=== PATIENT | male | born 1995 | race Caucasian/White ===

== ENCOUNTER 2018-07-21 16:14 | Inpatient (IN) | payer OTHER ==
[~2018-07-21] VITALS: Ht 180.3 cm; Wt 97.2 kg
[~2018-07-21 16:14] MED LIST: ACET1TAB40 PO; AMOX500C2 PO; IBUP-1542 PO
[2018-07-21] MEDS ORDERED: MULT-345 PO (20:08)
[2018-07-21] MEDS ORDERED: ELVI1TAB3 PO (20:08)
[2018-07-21] MEDS ORDERED: DIVA125T PO (20:18)
[2018-07-21] MEDS ORDERED: QUET100T PO (20:19)
[2018-07-21] MEDS ORDERED: ESCI10TA PO (20:20)
[2018-07-21] MEDS ORDERED: NAPR-688 PO (20:24)
[2018-07-21 20:39] VITALS: BP 111/59; PULSE 96; RESP 18
[2018-07-21] MEDS ORDERED: ACETAMINOPHEN 325 MG TAB PO PRN (21:30)
[2018-07-21] MEDS ORDERED: ONDANSETRON 4 MG INJ IV PRN (21:30)
[2018-07-21] MEDS ORDERED: NACL 0.9% 3 ML SYG IV SCH (21:30)
[2018-07-21] MEDS ORDERED: ALBUTEROL/IPRATROPIUM (NEB) 3 ML AMP HHN PRN (21:30)
[2018-07-21] MEDS: HYDROCODONE/APAP (5/325) TAB PO PRN (22:03)
[2018-07-21] MEDS: TRIMETHOPRIM/SULFAMETHOX (DS) TAB PO SCH (22:03)
[2018-07-21] MEDS ORDERED: QUETIAPINE 100 MG TAB PO SCH (22:30)
[2018-07-21] MEDS: DIVALPROEX (EC) 250 MG TAB PO SCH (23:07)
[2018-07-21] MEDS: QUETIAPINE 100 MG TAB PO SCH (23:08)
[2018-07-21] MEDS ORDERED: DIVALPROEX (EC) 250 MG TAB PO SCH (23:30)
[2018-07-22 00:12] VITALS: Ht 180.3 cm; Wt 97.2 kg
[2018-07-22 02:00] VITALS: BP 98/58; PULSE 75; RESP 18
--- NOTE | 2018-07-22 02:51 | HP ---
Date/Time of Note Date/Time of Note DATE: 07/22/18 TIME: 02:46 Assessment/Plan VTE Prophylaxis Pharmacological prophylaxis: heparin Assessment/Plan Assessment/Plan 1. Right knee and lower leg cellulitis, with abscess formation -IV antibiotic -ID consult 2. HIV -Check CD4 count and viral load -Continue home med 3. Psychiatric disorder: History of suicide attempt by jumping off a bridge in 2013. Currently no suicidal ideation. -Continue home med Result Diagram: 07/22/18 0042 07/22/18 0042 Results 24hrs Laboratory Tests Test 07/22/18 00:42 White Blood Count 8.8 Red Blood Count 4.20 L Hemoglobin 12.2 L Hematocrit 36.3 L Mean Corpuscular Volume 86.4 Mean Corpuscular Hemoglobin 29.0 Mean Corpuscular Hemoglobin Concent 33.6 Red Cell Distribution Width 12.2 Platelet Count 241 Mean Platelet Volume 8.5 Immature Granulocytes % 0.500 H Neutrophils % 75.8 Lymphocytes % 13.0 L Monocytes % 8.9 Eosinophils % 1.6 Basophils % 0.2 Nucleated Red Blood Cells % 0.0 Immature Granulocytes # 0.040 H Neutrophils # 6.7 Lymphocytes # 1.2 Monocytes # 0.8 Eosinophils # 0.1 Basophils # 0.0 Nucleated Red Blood Cells # 0.0 Sodium Level 139 Potassium Level 3.7 Chloride Level 102 Carbon Dioxide Level 27 Anion Gap 10 Blood Urea Nitrogen 13 Creatinine 0.80 Est Glomerular Filtrat Rate mL/min > 60 Glucose Level 105 Calcium Level 8.6 Total Bilirubin 0.6 Direct Bilirubin 0.00 Indirect Bilirubin 0.6 Aspartate Amino Transf (AST/SGOT) 17 Alanine Aminotransferase (ALT/SGPT) 18 Alkaline Phosphatase 77 Total Protein 7.0 Albumin 3.5 Globulin 3.50 H Albumin/Globulin Ratio 1.00 HPI/ROS Admit Date/Time Admit Date/Time Jul 21, 2018 at 19:50 Hx of Present Illness This is a 22-year-old male with a history of HIV, schizophrenia, bipolar disorder who initially presented on outside hospital complaining of right knee/knee swelling, tenderness and infection. Symptoms been going on for about a week. He thinks he was bitten by spider. Patient was transferred to [facility] for insurance reasons. PMH/Family/Social Past Medical History Medications Current Medications IV Flush (NS 3 ml) 3 ml PER PROTOCOL IV ; Start 07/21/18 at 21:30 Ondansetron HCl (Zofran Inj) 4 mg Q6H PRN IV NAUSEA AND/OR VOMITING; Start 07/21/18 at 21:30 Acetaminophen (Tylenol Tab) 650 mg Q6H PRN PO PAIN LEVEL 1-3 OR FEVER; Start 07/21/18 at 21:30 Acetaminophen/ Hydrocodone Bitart ([place] (5/325)) 1 tab Q6H PRN PO MODERATE PAIN LEVEL 4-6; Start 07/21/18 at 21:30 Acetaminophen/ Hydrocodone Bitart ([place] (5/325)) 2 tab Q6H PRN PO SEVERE PAIN LEVEL 7-10 Last administered on 07/21/18at 22:03; Admin Dose 2 TAB; Start 07/21/18 at 21:30 Heparin Sodium (Porcine) (Heparin (5000 Units/1ml)) 5,000 unit Q12 SC ; Start 07/22/18 at 09:00 Albuterol/ Ipratropium (Duoneb) 3 ml Q2H RESP THERAPY PRN HHN SHORTNESS OF BREATH; Start 07/21/18 at 21:30 Trimethoprim/ Sulfamethoxazole (Bactrim (Ds)) 1 tab BID PO Last administered on 07/21/18at 22:03; Admin Dose 1 TAB; Start 07/21/18 at 21:30 Elvitegravir/ Cobicis/Emtricit/ Tenof (Genvoya Tablet) 1 each DAILY PO ; Start 07/22/18 at 09:00 Escitalopram Oxalate (Lexapro) 10 mg DAILY PO ; Start 07/22/18 at 09:00 Multivitamins/ Minerals (Theragran-M) 1 tab DAILY PO ; Start 07/22/18 at 09:00 Quetiapine Fumarate (Seroquel) 300 mg HS PO Last administered on 07/21/18at 23:08; Admin Dose 300 MG; Start 07/21/18 at 22:58 Divalproex Sodium (Depakote) 750 mg QHS PO Last administered on 07/21/18at 23:07; Admin Dose 750 MG; Start 07/21/18 at 22:58 Miscellaneous Information Patients own medicat... BID@10,16 XX ; Start 07/22/18 at 10:00 Coded Allergies: No Known Allergy (Unverified , 10/30/15) Social History Smoking Status: Current every day smoker Exam/Review of Systems Vital Signs Vitals Vital Signs Date Temp Pulse Resp B/P (MAP) Pulse Ox O2 O2 Flow FiO2 Time Delivery Rate 07/22/18 98.5 75 18 98/58 (71) Room Air 02:00 Exam Exam Constitutional: other (no acute distress) Head: normocephalic Respiratory: other (slight decreased at bases) Cardiovascular: regular rate and rhythm Gastrointestinal: soft Extremities: normal pulses PMH/Family/Social Past Medical History Medical History: other (see hpi) Coded Allergies: No Known Drug Allergy (Verified Allergy, Unknown, 03/06/16) Past Surgical History Past Surgical Hx: other (see hpi) Family History Significant Family History: no pertinent family hx Social History Alcohol Use: other Smoking Status: Unknown if ever smoked Drug Use: other ROSE REBOLLEDO MD Jul 22, 2018 02:51
[2018-07-22 08:30] VITALS: BP 112/68; PULSE 91; RESP 18
[2018-07-22] MEDS: HYDROCODONE/APAP (5/325) TAB PO PRN ×5 (08:47→22:18)
[2018-07-22] MEDS: ESCITALOPRAM 10 MG TAB PO SCH (08:47)
[2018-07-22] MEDS: TRIMETHOPRIM/SULFAMETHOX (DS) TAB PO SCH ×2 (08:48→20:40)
[2018-07-22] MEDS: HEPARIN 5,000 UNIT/1 ML VIAL SC SCH ×2 (08:49→20:43)
[2018-07-22] MEDS: MULTIVITAMINS/MINERALS TAB PO SCH (08:49)
[2018-07-22] MEDS ORDERED: ELVITEG/COBI/EMTRIC/TENOFO ALA 1 EACH TABLET PO SCH (09:00)
[2018-07-22] MEDS: ELVITEG/COBI/EMTRIC/TENOFO ALA 1 EACH TABLET PO SCH (09:42)
--- NOTE | 2018-07-22 11:50 | PN ---
Date/Time of Note Date/Time of Note DATE: 07/22/18 TIME: 11:47 Assessment/Plan VTE Prophylaxis Risk score (from Ns)>0 risk: 1 [place] [facility] [place] SCD contraindicated: low risk/ambulating Pharmacological prophylaxis: NA/contraindicated Pharm contraindication: low risk/ambulating Lines/Catheters [facility] Saline Lock Urinary Cath still in place: No Assessment/Plan Hospital Course Assessment and plan 1. Right lower extremity cellulitis robin and knee. Probable strep, stable consulted ID. Antibiotics and if fails may need I&D 2. Bug/spider bite? Tetanus shot soon 3. Chronic HIV status unknown 4. Chronic major depression history of 5. Bipolar versus schizophrenia 6. Failure to thrive homeless. May need placement. Apparently wants some crutches or a walker 7. Tobacco abuse status post counseling offered patch Subjective States he woke up at his family's house with 2 areas of injury on his right leg. Thinks he had a spider bite. He has seen spiders in his uncle's closet. Denies any injury against a bed frame etc. No known h/o ivda. No fevers chills Reiger nausea vomiting hematuria. Reactive: Vital signs stable Physical exam No pallor icterus adenopathy Regular no murmur gallop Clear Benign No edema. Right robin and right knee area have some edema mild erythema and probable abscess. Result Diagram: 07/22/182 07/22/18 0042 Results 24hrs Laboratory Tests Test 07/22/18 00:42 White Blood Count 8.8 Red Blood Count 4.20 L Hemoglobin 12.2 L Hematocrit 36.3 L Mean Corpuscular Volume 86.4 Mean Corpuscular Hemoglobin 29.0 Mean Corpuscular Hemoglobin Concent 33.6 Red Cell Distribution Width 12.2 Platelet Count 241 Mean Platelet Volume 8.5 Immature Granulocytes % 0.500 H Neutrophils % 75.8 Lymphocytes % 13.0 L Monocytes % 8.9 Eosinophils % 1.6 Basophils % 0.2 Nucleated Red Blood Cells % 0.0 Immature Granulocytes # 0.040 H Neutrophils # 6.7 Lymphocytes # 1.2 Monocytes # 0.8 Eosinophils # 0.1 Basophils # 0.0 Nucleated Red Blood Cells # 0.0 Sodium Level 139 Potassium Level 3.7 Chloride Level 102 Carbon Dioxide Level 27 Anion Gap 10 Blood Urea Nitrogen 13 Creatinine 0.80 Est Glomerular Filtrat Rate mL/min > 60 Glucose Level 105 Calcium Level 8.6 Total Bilirubin 0.6 Direct Bilirubin 0.00 Indirect Bilirubin 0.6 Aspartate Amino Transf (AST/SGOT) 17 Alanine Aminotransferase (ALT/SGPT) 18 Alkaline Phosphatase 77 Total Protein 7.0 Albumin 3.5 Globulin 3.50 H Albumin/Globulin Ratio 1.00 Exam/Review of Systems Vital Signs Vitals Vital Signs Date Temp Pulse Resp B/P (MAP) Pulse Ox O2 O2 Flow FiO2 Time Delivery Rate 07/22/18 98.1 91 18 112/68 100 Room Air 08:30 (83) Medications Medications Current Medications IV Flush (NS 3 ml) 3 ml PER PROTOCOL IV ; Start 07/21/18 at 21:30 Ondansetron HCl (Zofran Inj) 4 mg Q6H PRN IV NAUSEA AND/OR VOMITING; Start 07/21/18 at 21:30 Acetaminophen (Tylenol Tab) 650 mg Q6H PRN PO PAIN LEVEL 1-3 OR FEVER Last administered on 07/22/18at 11:12; Admin Dose 650 MG; Start 07/21/18 at 21:30 Acetaminophen/ Hydrocodone Bitart ([place] (5/325)) 1 tab Q6H PRN PO MODERATE PAIN LEVEL 4-6 Last administered on 07/22/18 09:47; Admin Dose 1 TAB; Start 07/21/18 at 21:30 Acetaminophen/ Hydrocodone Bitart ([place] (5/325)) 2 tab Q6H PRN PO SEVERE PAIN LEVEL 7-10 Last administered on 07/22/18 08:47; Admin Dose 2 TAB; Start 07/21/18 at 21:30 Heparin Sodium (Porcine) (Heparin (5000 Units/1ml)) 5,000 unit Q12 SC Last administered on 07/22/18 08:49; Admin Dose 5,000 UNIT; Start 07/22/18 at 09:00 Albuterol/ Ipratropium (Duoneb) 3 ml Q2H RESP THERAPY PRN HHN SHORTNESS OF BREATH; Start 07/21/18 at 21:30 Trimethoprim/ Sulfamethoxazole (Bactrim (Ds)) 1 tab BID PO Last administered on 07/22/18 08:48; Admin Dose 1 TAB; Start 07/21/18 at 21:30 Escitalopram Oxalate (Lexapro) 10 mg DAILY PO Last administered on 07/22/18at 08:47; Admin Dose 10 MG; Start 07/22/18 at 09:00 Multivitamins/ Minerals (Theragran-M) 1 tab DAILY PO Last administered on 07/22/18at 08:49; Admin Dose 1 TAB; Start 07/22/18 at 09:00 Quetiapine Fumarate (Seroquel) 300 mg HS PO Last administered on 07/21/18at 23:08; Admin Dose 300 MG; Start 07/21/18 at 22:58 Divalproex Sodium (Depakote) 750 mg QHS PO Last administered on 07/21/18at 23:07; Admin Dose 750 MG; Start 07/21/18 at 22:58 Miscellaneous Information Patients own medicat... BID@10,16 XX ; Start 07/22/18 at 10:00 Elvitegravir/ Cobicis/Emtricit/ Tenof (Genvoya Tablet) 1 each DAILY PO Last administered on 07/22/18at 09:42; Admin Dose 1 EACH; Start 07/22/18 at 09:00 JEWELL VALENZUELA MD Jul 22, 2018 11:50
[2018-07-22] MEDS ORDERED: TETANUS IMMUNE GLOB 250 UNIT SYG IM ONE (12:00)
[2018-07-22 14:45] VITALS: BP 110/70; PULSE 89; RESP 18
[2018-07-22] MEDS: NICOTINE (14 MG/24 HR) PATCH TRANSDERM SCH (15:52)
[2018-07-22] MEDS ORDERED: VANCOMYCIN IV PER PHARMACY XX SCH (16:00)
[2018-07-22] MEDS ORDERED: VANCOMYCIN 2 GM in SOD CHLORIDE 0.9% 500 ML IVPB SCH (18:00)
[2018-07-22 19:32] VITALS: BP 109/64; PULSE 91; RESP 18
[2018-07-22] MEDS: QUETIAPINE 100 MG TAB PO SCH (20:40)
[2018-07-22] MEDS: DIVALPROEX (EC) 250 MG TAB PO SCH (20:40)
--- NOTE | 2018-07-22 21:24 | CONS ---
DATE OF ADMISSION: 07/21/2018 DATE OF CONSULTATION: 07/22/2018 TYPE OF CONSULTATION: Infectious Disease. REASON FOR CONSULTATION: Antibiotic management. HISTORY OF PRESENT ILLNESS: Mathieu Silveira is a 22-year-old male with a number of problems who comes in now with right lower extremity cellulitis. The patient has a history of: 1. Bipolar versus schizophrenia. 2. Failure to thrive. He is homeless and may need placement. 3. He uses tobacco. 4. Right lower extremity cellulitis involving the robin and the knee, possibly Strep, possibly Staph. PAST MEDICAL HISTORY: As outlined. FAMILY HISTORY: Noncontributory. SOCIAL HISTORY: He does smoke on a regular basis. He also may chew tobacco. He does not drink or a buse drugs. ALLERGIES: NONE TO PENICILLIN, SULFA, OR FOODS. MEDICATIONS: Per chart. REVIEW OF SYSTEMS: Noncontributory. PHYSICAL EXAMINATION: GENERAL: The patient is a well-developed, well-nourished male, somewhat disheveled, awake and orient ed, in no acute distress. VITAL SIGNS: Stable. He is afebrile. SKIN: Without generalized rash. HEENT: Within normal limits. NECK: Supple. LYMPH NODES: None palpable. CHEST: Decreased breath sounds in the bases. HEART: Without murmur or gallop. ABDOMEN: Soft, nontender, without organosplenomegaly, masses. EXTREMITIES: Right anterior tibial area and right knee has edema and mild erythema, possible abscess . ANCILLARY LABORATORY DATA: White count of 8.8, H and H of 12.2 and 36.3, and platelet count 241,000. BUN and creatinine 13/0.8. Random glucose 105. IMPRESSION AND PLAN: Patient should be started on vancomycin and maybe Levaquin. He also has HIV. He is on anti-HIV medication. He is also on Bactrim. We have to find out what exactly his CD4 count is. The patient is on Genvoya which consists of elvitegravir, cobicistat, and Truvada. As I said, we need the CD4 count. We also need to put him on vancomycin and oral Levaquin. I will dictate my f indings to the hospitalist. Dictated By: MELISSA ORTIZ MD, JD/ALEXEY Conf#: [id number] DID#: [id number] CC: ERASMO LUCIO MD;*EndCC*
[2018-07-23 02:00] VITALS: BP 132/63; PULSE 95; RESP 18
[2018-07-23] MEDS: VANCOMYCIN 1.5 GM in SOD CHLORIDE 0.9% 250 ML IVPB SCH ×3 (03:29→20:22)
[2018-07-23] MEDS: HYDROCODONE/APAP (5/325) TAB PO PRN ×2 (03:35→09:38)
[2018-07-23] MEDS: LEVOFLOXACIN 500 MG TAB PO SCH (06:04)
[2018-07-23 08:00] VITALS: BP 102/53; PULSE 96; RESP 19
[2018-07-23] MEDS: MULTIVITAMINS/MINERALS TAB PO SCH (09:40)
[2018-07-23] MEDS: ELVITEG/COBI/EMTRIC/TENOFO ALA 1 EACH TABLET PO SCH (09:40)
[2018-07-23] MEDS: NICOTINE (14 MG/24 HR) PATCH TRANSDERM SCH (09:41)
[2018-07-23] MEDS: TRIMETHOPRIM/SULFAMETHOX (DS) TAB PO SCH (09:41)
[2018-07-23] MEDS: ESCITALOPRAM 10 MG TAB PO SCH (09:43)
[2018-07-23] MEDS: HEPARIN 5,000 UNIT/1 ML VIAL SC SCH ×2 (09:43→20:26)
--- NOTE | 2018-07-23 12:57 | PN ---
Date/Time of Note Date/Time of Note DATE: 07/23/18 TIME: 12:57 Assessment/Plan VTE Prophylaxis Risk score (from Ns)>0 risk: 2 SCD applied (from Ns): Yes SCD contraindicated: low risk/ambulating Pharmacological prophylaxis: LMWH Lines/Catheters IV Catheter Type (from Nrs): Saline Lock Urinary Cath still in place: No Assessment/Plan Hospital Course Assessment and plan 1. Right lower extremity cellulitis robin and knee. Probable strep, stable cont Antibiotics and if fails may need I&D 2. Bug/spider bite? Tetanus shot soon 3. Chronic HIV status unknown 4. Chronic major depression history of 5. Bipolar versus schizophrenia 6. Failure to thrive homeless. May need placement. Apparently wants some crutches or a walker 7. Tobacco abuse status post counseling offered patch Subjective 07/22 states he woke up at his family's house with 2 areas of injury on his right leg. Thinks he had a spider bite. He has seen spiders in his uncle's closet. Denies any injury against a bed frame etc. No known h/o ivda. No fevers chills Reiger nausea vomiting hematuria. \/4 moderate pain O: Vital signs stable Physical exam No pallor Regular no murmur gallop Clear Benign No edema. Right robin and right knee area have some edema mild erythema and prob able abscess. Result Diagram: 07/23/18 0533 07/23/18 0533 Results 24hrs Laboratory Tests Test 07/23/18 05:33 07/23/18 07:17 White Blood Count 8.7 Red Blood Count 4.17 L Hemoglobin 12.2 L Hematocrit 37.3 L Mean Corpuscular Volume 89.4 Mean Corpuscular Hemoglobin 29.3 Mean Corpuscular Hemoglobin Concent 32.7 Red Cell Distribution Width 12.2 Platelet Count 301 # Mean Platelet Volume 8.6 Immature Granulocytes % 0.500 H Neutrophils % 76.0 Lymphocytes % 11.4 L Monocytes % 10.0 Eosinophils % 1.8 Basophils % 0.3 Nucleated Red Blood Cells % 0.0 Immature Granulocytes # 0.040 H Neutrophils # 6.6 Lymphocytes # 1.0 Monocytes # 0.9 Eosinophils # 0.2 Basophils # 0.0 Nucleated Red Blood Cells # 0.0 Prothrombin Time 15.2 H Prothrombin Time Ratio 1.2 INR International Normalized Ratio 1.19 Sodium Level 140 Potassium Level 4.1 Chloride Level 100 Carbon Dioxide Level 31 Anion Gap 9 Blood Urea Nitrogen 8 Creatinine 0.73 Est Glomerular Filtrat Rate mL/min > 60 Glucose Level 85 Hemoglobin A1c 4.8 Calcium Level 8.7 Thyroid Stimulating Hormone (TSH) 1.100 Lab Scanned Report REFERENCE LAB Exam/Review of Systems Vital Signs Vitals Vital Signs Date Temp Pulse Resp B/P (MAP) Pulse Ox O2 O2 Flow FiO2 Time Delivery Rate 07/23/18 99.0 96 19 102/53 95 Room Air 08:00 (69) Intake and Output 07/22/18 07/22/18 07/23/18 1414:59 22:59 06:59 IntakeIntake Total 920 ml 460 ml 750 ml OutputOutput Total 300 ml BalanceBalance 620 ml 460 ml 750 ml Medications Medications Current Medications IV Flush (NS 3 ml) 3 ml PER PROTOCOL IV ; Start 07/21/18 at 21:30 Ondansetron HCl (Zofran Inj) 4 mg Q6H PRN IV NAUSEA AND/OR VOMITING; Start 07/21/18 at 21:30 Acetaminophen (Tylenol Tab) 650 mg Q6H PRN PO PAIN LEVEL 1-3 OR FEVER Last administered on 07/22/18 11:12; Admin Dose 650 MG; Start 07/21/18 at 21:30 Heparin Sodium (Porcine) (Heparin (5000 Units/1ml)) 5,000 unit Q12 SC Last administered on 07/23/18 09:43; Admin Dose 5,000 UNIT; Start 07/22/18 at 09:00 Albuterol/ Ipratropium (Duoneb) 3 ml Q2H RESP THERAPY PRN HHN SHORTNESS OF BREATH; Start 07/21/18 at 21:30 Trimethoprim/ Sulfamethoxazole (Bactrim (Ds)) 1 tab BID PO Last administered on 07/23/18 09:41; Admin Dose 1 TAB; Start 07/21/18 at 21:30 Escitalopram Oxalate (Lexapro) 10 mg DAILY PO Last administered on 07/23/18 09:43; Admin Dose 10 MG; Start 07/22/18 at 09:00 Multivitamins/ Minerals (Theragran-M) 1 tab DAILY PO Last administered on 07/23/18 09:40; Admin Dose 1 TAB; Start 07/22/18 at 09:00 Quetiapine Fumarate (Seroquel) 300 mg HS PO Last administered on 07/22/18at 20:40; Admin Dose 300 MG; Start 07/21/18 at 22:58 Divalproex Sodium (Depakote) 750 mg QHS PO Last administered on 07/22/18at 20:40; Admin Dose 750 MG; Start 07/21/18 at 22:58 Miscellaneous Information Patients own medicat... BID@10,16 XX ; Start 07/22/18 at 10:00 Elvitegravir/ Cobicis/Emtricit/ Tenof (Genvoya Tablet) 1 each DAILY PO Last administered on 07/23/18 09:40; Admin Dose 1 EACH; Start 07/22/18 at 09:00 Nicotine (Nicoderm 14 Mg/ 24hr) 1 patch DAILY TRANSDERM Last administered on 07/23/18at 09:41; Admin Dose 1 PATCH; Start 07/22/18 at 13:00 Vancomycin HCl (Vanco Iv Per Pharmacy) VANCOMYCIN PER PHARMACY PER PROTOCOL XX ; Start 07/22/18 at 16:00 Levofloxacin (Levaquin) 500 mg DAILY@06 PO Last administered on 07/23/18at 06:04; Admin Dose 500 MG; Start 07/23/18 at 06:00 Vancomycin HCl 1.5 gm/Sodium Chloride 250 ml @ 83.333 mls/ hr Q8H IVPB Last administered on 07/23/18at 10:29; Admin Dose 83.333 MLS/HR; Start 07/23/18 at 02:00 Acetaminophen/ Hydrocodone Bitart ([place] (10/325)) 1 tab Q4H PRN PO MODERATE PAIN LEVEL 4-6; Start 07/23/18 at 11:00 Morphine Sulfate (morphine) 10 mg Q3H PRN PO SEVERE PAIN LEVEL 7-10; Start 07/23/18 at 11:00 JEWELL VALENZUELA MD Jul 23, 2018 12:57
[2018-07-23 14:00] VITALS: BP 105/67; PULSE 92; RESP 18
[2018-07-23] MEDS: morphine LIQ (10 MG/5 ML) CUP PO PRN ×2 (14:41→18:56)
--- NOTE | 2018-07-23 14:51 | CONS ---
Date/Time of Note Date/Time of Note DATE: 07/23/18 TIME: 14:51 Assessment/Plan Assessment/Plan Hospital Course Patient is alert looks comfortable denies pain at the moment no fevers overnight. WBC 8.7 platelets 301 neutrophils 76 BUN 8 creatinine 0.73 Antimicrobials: Vancomycin, Levaquin, Bactrim Physical examination: Well-nourished well-developed young man who is alert in no distress. Head atraumatic normocephalic neck is supple chest rise symmetrical breath sounds diminished bases heart S1-S2 abdomen soft bowel sounds present extremities with right knee swelling erythema and area of fluctuance. Bilateral lower extremities with multiple scabs below knees from scratching Assessment: 1. Right knee cellulitis, possibly developing abscess, likely secondary to spider bite 2. HIV disease with undetectable viral load per report, patient is on Genvoya 3. Bipolar versus schizophrenia Plan: Patient remained stable, we will discontinue Bactrim, continue vancomycin and Levaquin, send serology for CD4 count, keep right lower extremity elevated, consider evaluation by Ortho surgery Result Diagram: 07/23/18 0533 07/23/18 0533 Results 24hrs Laboratory Tests Test 07/23/18 05:33 07/23/18 07:17 White Blood Count 8.7 Red Blood Count 4.17 L Hemoglobin 12.2 L Hematocrit 37.3 L Mean Corpuscular Volume 89.4 Mean Corpuscular Hemoglobin 29.3 Mean Corpuscular Hemoglobin Concent 32.7 Red Cell Distribution Width 12.2 Platelet Count 301 # Mean Platelet Volume 8.6 Immature Granulocytes % 0.500 H Neutrophils % 76.0 Lymphocytes % 11.4 L Monocytes % 10.0 Eosinophils % 1.8 Basophils % 0.3 Nucleated Red Blood Cells % 0.0 Immature Granulocytes # 0.040 H Neutrophils # 6.6 Lymphocytes # 1.0 Monocytes # 0.9 Eosinophils # 0.2 Basophils # 0.0 Nucleated Red Blood Cells # 0.0 Prothrombin Time 15.2 H Prothrombin Time Ratio 1.2 INR International Normalized Ratio 1.19 Sodium Level 140 Potassium Level 4.1 Chloride Level 100 Carbon Dioxide Level 31 Anion Gap 9 Blood Urea Nitrogen 8 Creatinine 0.73 Est Glomerular Filtrat Rate mL/min > 60 Glucose Level 85 Hemoglobin A1c 4.8 Calcium Level 8.7 Thyroid Stimulating Hormone (TSH) 1.100 Lab Scanned Report REFERENCE LAB Consultation Date/Type/Reason Admit Date/Time Jul 21, 2018 at 19:50 Initial Consult Date Type of Consult ID Exam/Review of Systems Vital Signs Vitals Vital Signs Date Temp Pulse Resp B/P (MAP) Pulse Ox O2 O2 Flow FiO2 Time Delivery Rate 07/23/18 99.0 96 19 102/53 95 Room Air 08:00 (69) Intake and Output 07/22/18 07/22/18 07/23/18 1414:59 22:59 06:59 IntakeIntake Total 920 ml 460 ml 750 ml OutputOutput Total 300 ml BalanceBalance 620 ml 460 ml 750 ml Medications Medications Current Medications IV Flush (NS 3 ml) 3 ml PER PROTOCOL IV ; Start 07/21/18 at 21:30 Ondansetron HCl (Zofran Inj) 4 mg Q6H PRN IV NAUSEA AND/OR VOMITING; Start 07/21/18 at 21:30 Acetaminophen (Tylenol Tab) 650 mg Q6H PRN PO PAIN LEVEL 1-3 OR FEVER Last administered on 07/22/18at 11:12; Admin Dose 650 MG; Start 07/21/18 at 21:30 Heparin Sodium (Porcine) (Heparin (5000 Units/1ml)) 5,000 unit Q12 SC Last administered on 07/23/18 09:43; Admin Dose 5,000 UNIT; Start 07/22/18 at 09:00 Albuterol/ Ipratropium (Duoneb) 3 ml Q2H RESP THERAPY PRN HHN SHORTNESS OF BREATH; Start 07/21/18 at 21:30 Trimethoprim/ Sulfamethoxazole (Bactrim (Ds)) 1 tab BID PO Last administered on 07/23/18 09:41; Admin Dose 1 TAB; Start 07/21/18 at 21:30 Escitalopram Oxalate (Lexapro) 10 mg DAILY PO Last administered on 07/23/18 09:43; Admin Dose 10 MG; Start 07/22/18 at 09:00 Multivitamins/ Minerals (Theragran-M) 1 tab DAILY PO Last administered on 07/23/18 09:40; Admin Dose 1 TAB; Start 07/22/18 at 09:00 Quetiapine Fumarate (Seroquel) 300 mg HS PO Last administered on 07/22/18at 20:40; Admin Dose 300 MG; Start 07/21/18 at 22:58 Divalproex Sodium (Depakote) 750 mg QHS PO Last administered on 07/22/18at 20:40; Admin Dose 750 MG; Start 07/21/18 at 22:58 Miscellaneous Information Patients own medicat... BID@10,16 XX ; Start 07/22/18 at 10:00 Elvitegravir/ Cobicis/Emtricit/ Tenof (Genvoya Tablet) 1 each DAILY PO Last administered on 07/23/18at 09:40; Admin Dose 1 EACH; Start 07/22/18 at 09:00 Nicotine (Nicoderm 14 Mg/ 24hr) 1 patch DAILY TRANSDERM Last administered on 07/23/18at 09:41; Admin Dose 1 PATCH; Start 07/22/18 at 13:00 Vancomycin HCl (Vanco Iv Per Pharmacy) VANCOMYCIN PER PHARMACY PER PROTOCOL XX ; Start 07/22/18 at 16:00 Levofloxacin (Levaquin) 500 mg DAILY@06 PO Last administered on 07/23/18at 06:04; Admin Dose 500 MG; Start 07/23/18 at 06:00 Vancomycin HCl 1.5 gm/Sodium Chloride 250 ml @ 83.333 mls/ hr Q8H IVPB Last administered on 07/23/18at 10:29; Admin Dose 83.333 MLS/HR; Start 07/23/18 at 02:00 Acetaminophen/ Hydrocodone Bitart ([place] (10/325)) 1 tab Q4H PRN PO MODERATE PAIN LEVEL 4-6; Start 07/23/18 at 11:00 Morphine Sulfate (morphine) 10 mg Q3H PRN PO SEVERE PAIN LEVEL 7-10 Last administered on 07/23/18at 14:41; Admin Dose 10 MG; Start 07/23/18 at 11:00 Miscellaneous Information (*Rx Drug Level Order Reminder*) VANCO TROUGH 07/23 @ 1,700 ONCE ONCE XX ; Start 07/23/18 at 17:00; Stop 07/23/18 at 17:01 STEPHEN GRANT NP Jul 23, 2018 14:51
[2018-07-23] MEDS: SILVER SULFADIAZINE 1% 25 GM CR TOP SCH (17:30)
[2018-07-23 19:47] VITALS: BP 117/61; PULSE 104; RESP 20
[2018-07-23] MEDS: DIVALPROEX (EC) 250 MG TAB PO SCH (20:22)
[2018-07-23] MEDS: QUETIAPINE 100 MG TAB PO SCH (20:22)
[2018-07-24] MEDS: morphine LIQ (10 MG/5 ML) CUP PO PRN ×5 (02:00→21:29)
[2018-07-24 02:02] VITALS: BP 90/50; PULSE 91; RESP 20
[2018-07-24] MEDS: VANCOMYCIN 1.5 GM in SOD CHLORIDE 0.9% 250 ML IVPB SCH ×3 (04:39→20:04)
[2018-07-24] MEDS: LEVOFLOXACIN 500 MG TAB PO SCH (05:52)
[2018-07-24 08:07] VITALS: BP 100/53; PULSE 79; RESP 16
[2018-07-24] MEDS: ESCITALOPRAM 10 MG TAB PO SCH (08:26)
[2018-07-24] MEDS: MULTIVITAMINS/MINERALS TAB PO SCH (08:26)
[2018-07-24] MEDS: HEPARIN 5,000 UNIT/1 ML VIAL SC SCH ×2 (08:27→20:32)
[2018-07-24] MEDS: NICOTINE (14 MG/24 HR) PATCH TRANSDERM SCH (08:28)
[2018-07-24] MEDS: ELVITEG/COBI/EMTRIC/TENOFO ALA 1 EACH TABLET PO SCH (10:25)
[2018-07-24] MEDS: SILVER SULFADIAZINE 1% 25 GM CR TOP SCH (11:20)
[2018-07-24] MEDS: HYDROCODONE/APAP (10/325) TAB PO PRN ×3 (12:27→20:53)
[2018-07-24 13:27] VITALS: BP 110/57; PULSE 97; RESP 16
--- NOTE | 2018-07-24 18:37 | PN ---
Date/Time of Note Date/Time of Note DATE: 07/24/18 TIME: 18:36 Assessment/Plan VTE Prophylaxis Risk score (from Nsg)>0 risk: 2 SCD applied (from Nsg): Yes SCD contraindicated: low risk/ambulating Pharmacological prophylaxis: LMWH Lines/Catheters IV Catheter Type (from Nrsg): Peripheral IV Urinary Cath still in place: No Assessment/Plan Hospital Course Assessment and plan 1. Right lower extremity cellulitis robin and knee. Probable strep, stable cont Antibiotics, may need I&D. Will consult Ortho 2. Bug/spider bite? Tetanus shot soon 3. Chronic HIV status unknown 4. Chronic major depression history of 5. Bipolar versus schizophrenia 6. Failure to thrive homeless. May need placement. Apparently wants some crutches or a walker 7. Tobacco abuse status post counseling offered patch Subjective 07/22 states he woke up at his family's house with 2 areas of injury on his right leg. Thinks he had a spider bite. He has seen spiders in his uncle's closet. Denies any injury against a bed frame etc. No known h/o ivda. No fevers chills Reiger nausea vomiting hematuria. \/4 moderate pain 07/24: No events O: Vital signs stable Physical exam No pallor Regular no m/r/g Clear Benign No edema. Rt robin and rt knee area have some edema mild erythema and probable abscess. Result Diagram: 07/23/18 0533 07/23/1833 Results 24hrs Laboratory Tests Test 07/23/18 19:10 Vancomycin Level Trough 14.5 Exam/Review of Systems Vital Signs Vitals Vital Signs Date Temp Pulse Resp B/P (MAP) Pulse Ox O2 O2 Flow FiO2 Time Delivery Rate 07/24/18 97.4 97 16 110/57 94 Room Air 13:27 (74) Intake and Output 07/23/18 07/23/18 07/24/18 1515:00 23:00 07:00 IntakeIntake Total 680 ml 680 ml 250 ml OutputOutput Total 350 ml 500 ml 1200 ml BalanceBalance 330 ml 180 ml -950 ml Medications Medications Current Medications IV Flush (NS 3 ml) 3 ml PER PROTOCOL IV ; Start 07/21/18 at 21:30 Ondansetron HCl (Zofran Inj) 4 mg Q6H PRN IV NAUSEA AND/OR VOMITING; Start 07/21/18 at 21:30 Acetaminophen (Tylenol Tab) 650 mg Q6H PRN PO PAIN LEVEL 1-3 OR FEVER Last administered on 07/22/18 11:12; Admin Dose 650 MG; Start 07/21/18 at 21:30 Heparin Sodium (Porcine) (Heparin (5000 Units/1ml)) 5,000 unit Q12 SC Last administered on 07/24/18 08:27; Admin Dose 5,000 UNIT; Start 07/22/18 at 09:00 Albuterol/ Ipratropium (Duoneb) 3 ml Q2H RESP THERAPY PRN HHN SHORTNESS OF BREATH; Start 07/21/18 at 21:30 Escitalopram Oxalate (Lexapro) 10 mg DAILY PO Last administered on 07/24/18 08:26; Admin Dose 10 MG; Start 07/22/18 at 09:00 Multivitamins/ Minerals (Theragran-M) 1 tab DAILY PO Last administered on 07/24/18 08:26; Admin Dose 1 TAB; Start 07/22/18 at 09:00 Quetiapine Fumarate (Seroquel) 300 mg HS PO Last administered on 07/23/18 20:22; Admin Dose 300 MG; Start 07/21/18 at 22:58 Divalproex Sodium (Depakote) 750 mg QHS PO Last administered on 07/23/18 20:22; Admin Dose 750 MG; Start 07/21/18 at 22:58 Miscellaneous Information Patients own medicat... BID@ XX ; Start 07/22/18 at 10:00 Elvitegravir/ Cobicis/Emtricit/ Tenof (Genvoya Tablet) 1 each DAILY PO Last administered on 07/24/18 10:25; Admin Dose 1 EACH; Start 07/22/18 at 09:00 Nicotine (Nicoderm 14 Mg/ 24hr) 1 patch DAILY TRANSDERM Last administered on 07/23/18 09:41; Admin Dose 1 PATCH; Start 07/22/18 at 13:00 Vancomycin HCl (Vanco Iv Per Pharmacy) VANCOMYCIN PER PHARMACY PER PROTOCOL XX ; Start 07/22/18 at 16:00 Levofloxacin (Levaquin) 500 mg DAILY@06 PO Last administered on 07/24/18 05:52; Admin Dose 500 MG; Start 07/23/18 at 06:00 Acetaminophen/ Hydrocodone Bitart ([place] (10)) 1 tab Q4H PRN PO MODERATE PAIN LEVEL 4-6 Last administered on 07/24/18 16:53; Admin Dose 1 TAB; Start 07/23/18 at 11:00 Morphine Sulfate (morphine) 10 mg Q3H PRN PO SEVERE PAIN LEVEL 7-10 Last administered on 07/24/18 18:12; Admin Dose 10 MG; Start 07/23/18 at 11:00 Silver Sulfadiazine (Thermazene 1% 25 Gm) 1 applic DAILY TOP Last administered on 07/24/18 11:20; Admin Dose 1 APPLIC; Start 07/23/18 at 17:30 Vancomycin HCl 1.5 gm/Sodium Chloride 250 ml @ 83.333 mls/ hr Q8H IVPB Last administered on 07/24/18 12:18; Admin Dose 83.333 MLS/HR; Start 07/24/18 at 12:00 JEWELL VALENZUELA MD Jul 24, 2018 18:37
--- NOTE | 2018-07-24 19:14 | CONS ---
Date/Time of Note Date/Time of Note DATE: 07/24/18 TIME: 19:11 Assessment/Plan Assessment/Plan Hospital Course 1345 Patient is alert looks comfortable, + drainage form R knee Antimicrobials: Vancomycin, Levaquin Physical examination: Well-nourished well-developed young man who is alert in no distress. Head atraumatic normocephalic neck is supple chest rise symmetrical breath sounds diminished bases heart S1-S2 abdomen soft bowel sounds present extremities with right knee swelling erythema and area of fluctuance. Bilateral lower extremities with multiple scabs below knees from scratching Assessment: 1. Right knee cellulitis, possibly developing abscess, likely secondary to spider bite 2. AIDS===> CD4 177, patient is on Genvoya 3. Bipolar versus schizophrenia Plan: Patient remained stable, will restart Bactrim for PCP prophylaxis, continue vancomycin and Levaquin, send drainage for cx, order R knee MRI Result Diagram: 07/23/18 0533 07/23/18 0533 Consultation Date/Type/Reason Admit Date/Time Jul 21, 2018 at 19:50 Initial Consult Date Type of Consult ID Exam/Review of Systems Vital Signs Vitals Vital Signs Date Temp Pulse Resp B/P (MAP) Pulse Ox O2 O2 Flow FiO2 Time Delivery Rate 07/24/18 97.4 97 16 110/57 94 Room Air 13:27 (74) Intake and Output 07/23/18 07/23/18 07/24/18 1515:00 23:00 07:00 IntakeIntake Total 680 ml 680 ml 250 ml OutputOutput Total 350 ml 500 ml 1200 ml BalanceBalance 330 ml 180 ml -950 ml Medications Medications Current Medications IV Flush (NS 3 ml) 3 ml PER PROTOCOL IV ; Start 07/21/18 at 21:30 Ondansetron HCl (Zofran Inj) 4 mg Q6H PRN IV NAUSEA AND/OR VOMITING; Start 07/21/18 at 21:30 Acetaminophen (Tylenol Tab) 650 mg Q6H PRN PO PAIN LEVEL 1-3 OR FEVER Last administered on 07/22/18at 11:12; Admin Dose 650 MG; Start 07/21/18 at 21:30 Heparin Sodium (Porcine) (Heparin (5000 Units/1ml)) 5,000 unit Q12 SC Last administered on 07/24/18at 08:27; Admin Dose 5,000 UNIT; Start 07/22/18 at 09:00 Albuterol/ Ipratropium (Duoneb) 3 ml Q2H RESP THERAPY PRN HHN SHORTNESS OF BREATH; Start 07/21/18 at 21:30 Escitalopram Oxalate (Lexapro) 10 mg DAILY PO Last administered on 07/24/18 08:26; Admin Dose 10 MG; Start 07/22/18 at 09:00 Multivitamins/ Minerals (Theragran-M) 1 tab DAILY PO Last administered on 07/24/18 08:26; Admin Dose 1 TAB; Start 07/22/18 at 09:00 Quetiapine Fumarate (Seroquel) 300 mg HS PO Last administered on 07/23/18 20:22; Admin Dose 300 MG; Start 07/21/18 at 22:58 Divalproex Sodium (Depakote) 750 mg QHS PO Last administered on 07/23/18 20:22; Admin Dose 750 MG; Start 07/21/18 at 22:58 Miscellaneous Information Patients own medicat... BID@ XX ; Start 07/22/18 at 10:00 Elvitegravir/ Cobicis/Emtricit/ Tenof (Genvoya Tablet) 1 each DAILY PO Last administered on 07/24/18 10:25; Admin Dose 1 EACH; Start 07/22/18 at 09:00 Nicotine (Nicoderm 14 Mg/ 24hr) 1 patch DAILY TRANSDERM Last administered on 07/23/18 09:41; Admin Dose 1 PATCH; Start 07/22/18 at 13:00 Vancomycin HCl (Vanco Iv Per Pharmacy) VANCOMYCIN PER PHARMACY PER PROTOCOL XX ; Start 07/22/18 at 16:00 Levofloxacin (Levaquin) 500 mg DAILY@06 PO Last administered on 07/24/18 05:52; Admin Dose 500 MG; Start 07/23/18 at 06:00 Acetaminophen/ Hydrocodone Bitart ([place] (10325)) 1 tab Q4H PRN PO MODERATE PAIN LEVEL 4-6 Last administered on 07/24/18 16:53; Admin Dose 1 TAB; Start 07/23/18 at 11:00 Morphine Sulfate (morphine) 10 mg Q3H PRN PO SEVERE PAIN LEVEL 7-10 Last administered on 07/24/18 18:12; Admin Dose 10 MG; Start 07/23/18 at 11:00 Silver Sulfadiazine (Thermazene 1% 25 Gm) 1 applic DAILY TOP Last administered on 07/24/18at 11:20; Admin Dose 1 APPLIC; Start 07/23/18 at 17:30 Vancomycin HCl 1.5 gm/Sodium Chloride 250 ml @ 83.333 mls/ hr Q8H IVPB Last administered on 07/24/18at 12:18; Admin Dose 83.333 MLS/HR; Start 07/24/18 at 12:00 STEPHEN GRANT NP Jul 24, 2018 19:14
[2018-07-24 20:00] VITALS: BP 90/64; PULSE 78; RESP 17
[2018-07-24] MEDS: QUETIAPINE 100 MG TAB PO SCH (20:17)
[2018-07-24] MEDS: DIVALPROEX (EC) 250 MG TAB PO SCH (20:17)
[2018-07-25 01:46] VITALS: BP 92/56; PULSE 76; RESP 18
[2018-07-25] MEDS: VANCOMYCIN 1.5 GM in SOD CHLORIDE 0.9% 250 ML IVPB SCH ×3 (04:26→19:40)
[2018-07-25] MEDS: LEVOFLOXACIN 500 MG TAB PO SCH (06:37)
[2018-07-25 07:25] VITALS: BP 89/49; PULSE 66; RESP 16
[2018-07-25] MEDS: morphine LIQ (10 MG/5 ML) CUP PO PRN ×5 (07:40→23:35)
[2018-07-25] MEDS: ELVITEG/COBI/EMTRIC/TENOFO ALA 1 EACH TABLET PO SCH (09:00)
[2018-07-25] MEDS: SILVER SULFADIAZINE 1% 25 GM CR TOP SCH (09:00)
[2018-07-25] MEDS: HEPARIN 5,000 UNIT/1 ML VIAL SC SCH (09:11)
[2018-07-25] MEDS: MULTIVITAMINS/MINERALS TAB PO SCH (09:16)
[2018-07-25] MEDS: TRIMETHOPRIM/SULFAMETHOX (DS) TAB PO SCH (09:16)
[2018-07-25] MEDS: NICOTINE (14 MG/24 HR) PATCH TRANSDERM SCH (09:16)
[2018-07-25] MEDS: HYDROCODONE/APAP (10/325) TAB PO PRN ×3 (09:16→21:12)
[2018-07-25] MEDS: ESCITALOPRAM 10 MG TAB PO SCH (09:16)
--- NOTE | 2018-07-25 12:07 | PN ---
Date/Time of Note Date/Time of Note DATE: 07/25/18 TIME: 12:03 Assessment/Plan VTE Prophylaxis Risk score (from Ns)>0 risk: 2 SCD applied (from Ns): Yes SCD contraindicated: low risk/ambulating Pharmacological prophylaxis: NA/contraindicated Pharm contraindication: low risk/ambulating Lines/Catheters [facility] [place] Urinary Cath still in place: No Assessment/Plan Hospital Course Assessment and plan 1. Rt lwr ext cellulitis robin and knee. Probable strep, stable cont Antibiotics, I&D prn. Will consult Ortho 2. Bug/spider bite? sp Tetanus shot 3. Chr HIV status, cd4 4. Chr major depression history of 5. Bipolar vs schizophrenia 6. Failure to thrive; homeless. May need placement. going to live with his uncle? Apparently wants some crutches or a walker 7. Tobacco abuse status post counseling offered patch Subjective 07/22: states he woke up at his family's house with 2 areas of injury on his right leg. Thinks he had a spider bite. He has seen spiders in his uncle's closet. Denies any injury against a bed frame etc. No known h/o ivda. No fevers chills Reiger nausea vomiting hematuria. 07/23: mod pain 07/24: No events 07/25: Moderate pain. No fever chills toxicity. Rt knee cellulitis/ abscess has burst feels better. O: Vital signs stable Physical exam No pallor Regular no m/r/g Clear Benign No edema. Rt robin and rt knee area have some edema mild erythema and probable abscess. Result Diagram: 07/23/18 0533 07/25/18 0557 Results 24hrs Laboratory Tests Test 07/25/18 05:57 Blood Urea Nitrogen 9 Creatinine 0.64 Exam/Review of Systems Vital Signs Vitals Vital Signs Date Temp Pulse Resp B/P (MAP) Pulse Ox O2 O2 Flow FiO2 Time Delivery Rate 07/25/18 97.7 66 16 89/49 (62) 96 Room Air 07:25 Intake and Output 07/24/18 07/24/18 07/25/18 1515:00 23:00 07:00 IntakeIntake Total 250 ml 1290 ml 250 ml OutputOutput Total 600 ml 400 ml BalanceBalance 250 ml 690 ml -150 ml Medications Medications Current Medications IV Flush (NS 3 ml) 3 ml PER PROTOCOL IV ; Start 07/21/18 at 21:30 Ondansetron HCl (Zofran Inj) 4 mg Q6H PRN IV NAUSEA AND/OR VOMITING; Start 07/21/18 at 21:30 Acetaminophen (Tylenol Tab) 650 mg Q6H PRN PO PAIN LEVEL 1-3 OR FEVER Last administered on 07/22/18 11:12; Admin Dose 650 MG; Start 07/21/18 at 21:30 Heparin Sodium (Porcine) (Heparin (5000 Units/1ml)) 5,000 unit Q12 SC Last administered on 07/25/18 09:11; Admin Dose 5,000 UNIT; Start 07/22/18 at 09:00 Albuterol/ Ipratropium (Duoneb) 3 ml Q2H RESP THERAPY PRN HHN SHORTNESS OF BREATH; Start 07/21/18 at 21:30 Escitalopram Oxalate (Lexapro) 10 mg DAILY PO Last administered on 07/25/18 09:16; Admin Dose 10 MG; Start 07/22/18 at 09:00 Multivitamins/ Minerals (Theragran-M) 1 tab DAILY PO Last administered on 09:16; Admin Dose 1 TAB; Start 07/22/18 at 09:00 Quetiapine Fumarate (Seroquel) 300 mg HS PO Last administered on 07/24/18 20:17; Admin Dose 300 MG; Start 07/21/18 at 22:58 Divalproex Sodium (Depakote) 750 mg QHS PO Last administered on 07/24/18 20:17; Admin Dose 750 MG; Start 07/21/18 at 22:58 Miscellaneous Information Patients own medicat... BID@ XX ; Start 07/22/18 at 10:00 Elvitegravir/ Cobicis/Emtricit/ Tenof (Genvoya Tablet) 1 each DAILY PO Last administered on 07/25/18 09:00; Admin Dose 1 EACH; Start 07/22/18 at 09:00 Nicotine (Nicoderm 14 Mg/ 24hr) 1 patch DAILY TRANSDERM Last administered on 07/25/18 09:16; Admin Dose 1 PATCH; Start 07/22/18 at 13:00 Vancomycin HCl (Vanco Iv Per Pharmacy) VANCOMYCIN PER PHARMACY PER PROTOCOL XX ; Start 07/22/18 at 16:00 Levofloxacin (Levaquin) 500 mg DAILY@06 PO Last administered on 07/25/18at 06:37; Admin Dose 500 MG; Start 07/23/18 at 06:00 Acetaminophen/ Hydrocodone Bitart ([place] (10/325)) 1 tab Q4H PRN PO MODERATE PAIN LEVEL 4-6 Last administered on 07/25/18 09:16; Admin Dose 1 TAB; Start 07/23/18 at 11:00 Morphine Sulfate (morphine) 10 mg Q3H PRN PO SEVERE PAIN LEVEL 7-10 Last administered on 07/25/18at 11:51; Admin Dose 10 MG; Start 07/23/18 at 11:00 Silver Sulfadiazine (Thermazene 1% 25 Gm) 1 applic DAILY TOP Last administered on 07/24/18at 11:20; Admin Dose 1 APPLIC; Start 07/23/18 at 17:30 Vancomycin HCl 1.5 gm/Sodium Chloride 250 ml @ 83.333 mls/ hr Q8H IVPB Last administered on 07/25/18at 11:46; Admin Dose 83.333 MLS/HR; Start 07/24/18 at 12:00 Trimethoprim/ Sulfamethoxazole (Bactrim (Ds)) 1 tab DAILY PO Last administered on 07/25/18at 09:16; Admin Dose 1 TAB; Start 07/25/18 at 09:00 JEWELL VALENZUELA MD Jul 25, 2018 12:07
[2018-07-25] MEDS ORDERED: DOCUSATE SODIUM 250 MG CAP PO PRN (12:30)
[2018-07-25] MEDS ORDERED: IBUPROFEN 800 MG TAB PO PRN (12:30)
[2018-07-25] MEDS ORDERED: BISACODYL 10 MG SUPP PR PRN (12:30)
[2018-07-25 13:52] VITALS: BP 94/39; PULSE 80; RESP 16
[2018-07-25] MEDS: BISACODYL (EC) 5 MG TAB PO PRN (14:30)
--- NOTE | 2018-07-25 14:47 | CONS ---
Date/Time of Note Date/Time of Note DATE: 07/25/18 TIME: 14:46 Assessment/Plan Assessment/Plan Hospital Course No acute changes patient is awake looks comfortable no fevers overnight Microbiology: Wound culture growing staph aureus preliminary Antimicrobials: Vancomycin, levofloxacin, Bactrim Physical examination: Well-nourished well-developed young man who is alert in no distress. Head atraumatic normocephalic neck is supple chest rise symmetrical breath sounds diminished bases heart S1-S2 abdomen soft bowel sounds present extremities with right knee swelling erythema and area of fluctuance. Bilateral lower extremities with multiple scabs below knees from scratching Assessment: 1. Right knee cellulitis, possibly developing abscess, likely secondary to spider bite 2. AIDS===> CD4 177, patient is on Genvoya 3. Bipolar versus schizophrenia Plan: Patient remained stable, continue antibiotics, await for R knee MRI and final cx Result Diagram: 07/23/18 0533 07/25/18 0557 Results 24hrs Laboratory Tests Test 07/25/18 05:57 Blood Urea Nitrogen 9 Creatinine 0.64 Consultation Date/Type/Reason Admit Date/Time Jul 21, 2018 at 19:50 Initial Consult Date Type of Consult ID Exam/Review of Systems Vital Signs Vitals Vital Signs Date Temp Pulse Resp B/P (MAP) Pulse Ox O2 O2 Flow FiO2 Time Delivery Rate 07/25/18 98.3 80 16 94/39 (57) 100 Room Air 13:52 Intake and Output 07/24/18 07/24/18 07/25/18 1515:00 23:00 07:00 IntakeIntake Total 250 ml 1290 ml 250 ml OutputOutput Total 600 ml 400 ml BalanceBalance 250 ml 690 ml -150 ml Medications Medications Current Medications IV Flush (NS 3 ml) 3 ml PER PROTOCOL IV ; Start 07/21/18 at 21:30 Ondansetron HCl (Zofran Inj) 4 mg Q6H PRN IV NAUSEA AND/OR VOMITING; Start 07/21/18 at 21:30 Acetaminophen (Tylenol Tab) 650 mg Q6H PRN PO PAIN LEVEL 1-3 OR FEVER Last administered on 07/22/18at 11:12; Admin Dose 650 MG; Start 07/21/18 at 21:30 Albuterol/ Ipratropium (Duoneb) 3 ml Q2H RESP THERAPY PRN HHN SHORTNESS OF BREATH; Start 07/21/18 at 21:30 Escitalopram Oxalate (Lexapro) 10 mg DAILY PO Last administered on 07/25/18 09:16; Admin Dose 10 MG; Start 07/22/18 at 09:00 Multivitamins/ Minerals (Theragran-M) 1 tab DAILY PO Last administered on 07/25/18 09:16; Admin Dose 1 TAB; Start 07/22/18 at 09:00 Quetiapine Fumarate (Seroquel) 300 mg HS PO Last administered on 07/24/18 20:17; Admin Dose 300 MG; Start 07/21/18 at 22:58 Divalproex Sodium (Depakote) 750 mg QHS PO Last administered on 07/24/18 20:17; Admin Dose 750 MG; Start 07/21/18 at 22:58 Miscellaneous Information Patients own medicat... BID@10,16 XX ; Start 07/22/18 at 10:00 Elvitegravir/ Cobicis/Emtricit/ Tenof (Genvoya Tablet) 1 each DAILY PO Last administered on 07/25/18 09:00; Admin Dose 1 EACH; Start 07/22/18 at 09:00 Nicotine (Nicoderm 14 Mg/ 24hr) 1 patch DAILY TRANSDERM Last administered on 07/25/18 09:16; Admin Dose 1 PATCH; Start 07/22/18 at 13:00 Vancomycin HCl (Vanco Iv Per Pharmacy) VANCOMYCIN PER PHARMACY PER PROTOCOL XX ; Start 07/22/18 at 16:00 Levofloxacin (Levaquin) 500 mg DAILY@06 PO Last administered on 07/25/18 06:37; Admin Dose 500 MG; Start 07/23/18 at 06:00 Acetaminophen/ Hydrocodone Bitart ([place] (10/325)) 1 tab Q4H PRN PO MODERATE PAIN LEVEL 4-6 Last administered on 07/25/18 14:29; Admin Dose 1 TAB; Start 07/23/18 at 11:00 Morphine Sulfate (morphine) 10 mg Q3H PRN PO SEVERE PAIN LEVEL 7-10 Last administered on 07/25/18 11:51; Admin Dose 10 MG; Start 07/23/18 at 11:00 Silver Sulfadiazine (Thermazene 1% 25 Gm) 1 applic DAILY TOP Last administered on 1/5/19at 11:20; Admin Dose 1 APPLIC; Start 07/23/18 at 17:30 Vancomycin HCl 1.5 gm/Sodium Chloride 250 ml @ 83.333 mls/ hr Q8H IVPB Last administered on 07/25/18at 11:46; Admin Dose 83.333 MLS/HR; Start 07/24/18 at 12:00 Trimethoprim/ Sulfamethoxazole (Bactrim (Ds)) 1 tab DAILY PO Last administered on 07/25/18at 09:16; Admin Dose 1 TAB; Start 07/25/18 at 09:00 Miscellaneous Information (*Rx Drug Level Order Reminder*) VANCO TR 07/26 AT 1100 ONCE ONCE XX ; Start 07/26/18 at 11:00; Stop 07/26/18 at 11:01 Enoxaparin Sodium (Lovenox) 40 mg DAILY SC ; Start 07/26/18 at 09:00 Lactobacillus Acidophilus/ Rhamnosus (Culturelle) 1 cap BID PO ; Start 07/25/18 at 21:00 Senna/Docusate Sodium (Senokot-S) 2 tab HS PO ; Start 07/25/18 at 21:00 Bisacodyl (Dulcolax Supp) 10 mg Q48H PRN [place] CONSTIPATION; Start 07/25/18 at 12:30 Bisacodyl (Dulcolax) 10 mg DAILY PRN PO CONSTIPATION Last administered on 07/25/18at 14:30; Admin Dose 10 MG; Start 07/25/18 at 12:30 Docusate Sodium (Colace) 250 mg BID PRN PO CONSTIPATION; Start 07/25/18 at 12:30 Ibuprofen (Motrin) 800 mg Q6H PRN PO MILD PAIN LEVEL 1-3; Start 07/25/18 at 12:30 STEPHEN GRANT NP Jul 25, 2018 14:47
[2018-07-25] MEDS: QUETIAPINE 100 MG TAB PO SCH (21:11)
[2018-07-25] MEDS: LACTOBACILLUS RHAMNOSUS CAP PO SCH (21:11)
[2018-07-25] MEDS: SENNA/DOCUSATE NA (8.6MG/50MG) TAB PO SCH (21:11)
[2018-07-25 21:27] VITALS: BP 95/55; PULSE 76; RESP 20
[2018-07-25] MEDS: DIVALPROEX (EC) 250 MG TAB PO SCH (22:06)
[2018-07-26] MEDS: HYDROCODONE/APAP (10/325) TAB PO PRN ×2 (01:29→14:35)
[2018-07-26] MEDS: VANCOMYCIN 1.5 GM in SOD CHLORIDE 0.9% 250 ML IVPB SCH ×2 (05:02→12:52)
[2018-07-26] MEDS: LEVOFLOXACIN 500 MG TAB PO SCH (05:02)
[2018-07-26] MEDS: morphine LIQ (10 MG/5 ML) CUP PO PRN ×3 (05:02→17:46)
[2018-07-26 06:30] VITALS: BP 90/47; PULSE 67; RESP 18
[2018-07-26 08:00] VITALS: BP 84/47; PULSE 68; RESP 16
[2018-07-26] MEDS: MULTIVITAMINS/MINERALS TAB PO SCH (09:44)
[2018-07-26] MEDS: ENOXAPARIN 40 MG/0.4 ML SYG SC SCH (09:44)
[2018-07-26] MEDS: LACTOBACILLUS RHAMNOSUS CAP PO SCH ×2 (09:44→20:17)
[2018-07-26] MEDS: NICOTINE (14 MG/24 HR) PATCH TRANSDERM SCH (09:44)
[2018-07-26] MEDS: TRIMETHOPRIM/SULFAMETHOX (DS) TAB PO SCH (09:44)
[2018-07-26] MEDS: SILVER SULFADIAZINE 1% 25 GM CR TOP SCH (09:45)
[2018-07-26] MEDS: ESCITALOPRAM 10 MG TAB PO SCH (09:45)
[2018-07-26] MEDS: BISACODYL (EC) 5 MG TAB PO PRN (09:50)
[2018-07-26] MEDS: ELVITEG/COBI/EMTRIC/TENOFO ALA 1 EACH TABLET PO SCH (11:00)
--- NOTE | 2018-07-26 13:58 | CONS ---
Date/Time of Note Date/Time of Note DATE: 07/26/18 TIME: 13:57 Assessment/Plan Assessment/Plan Hospital Course Patient is alert feels better looks comfortable still with significant drainage from her light right knee however with improved pain and erythema Drainage culture grew MRSA Antimicrobials: Vancomycin, Bactrim for PCP prophylaxis MRI of the knee revealed subcutaneous fat phlegmon with likely fistulous conne ction to the skin of the right knee cannot exclude developing abscess. Fluid is seen superficial to the distal vastus medialis, cannot exclude muscular edema at the lateral and posterior distal vastus medialis Physical examination: Well-nourished well-developed young man who is alert in no distress. Head atraumatic normocephalic neck is supple chest rise symmetrical breath sounds diminished bases heart S1-S2 abdomen soft bowel sounds present extremities with right knee swelling erythema and area of fluctuance. Bilateral lower extremities with multiple scabs below knees from scratching Assessment: 1. Right knee MRSA abscess, r/o septic joint 2. AIDS===> CD4 177, patient is on Genvoya 3. Bipolar versus schizophrenia Plan: Patient remained stable, continue antibiotics, consider ortho eval Result Diagram: 07/26/18 0714 07/26/18 0714 Results 24hrs Laboratory Tests Test 07/26/18 07:14 07/26/18 11:02 White Blood Count 4.6 #L Red Blood Count 3.88 L Hemoglobin 11.1 L Hematocrit 34.4 L Mean Corpuscular Volume 88.7 Mean Corpuscular Hemoglobin 28.6 L Mean Corpuscular Hemoglobin Concent 32.3 Red Cell Distribution Width 12.6 Platelet Count 391 # Mean Platelet Volume 8.4 Immature Granulocytes % 3.400 H Neutrophils % 53.9 Lymphocytes % 22.8 Monocytes % 11.0 Eosinophils % 8.0 H Basophils % 0.9 Nucleated Red Blood Cells % 0.0 Immature Granulocytes # 0.160 H Neutrophils # 2.5 Lymphocytes # 1.1 Monocytes # 0.5 Eosinophils # 0.4 Basophils # 0.0 Nucleated Red Blood Cells # 0.0 Sodium Level 141 Potassium Level 4.6 Chloride Level 100 Carbon Dioxide Level 32 H Anion Gap 9 Blood Urea Nitrogen 9 Creatinine 0.75 Est Glomerular Filtrat Rate mL/min > 60 Glucose Level 96 Calcium Level 8.7 Total Bilirubin 0.0 L Direct Bilirubin 0.00 Indirect Bilirubin 0.0 Aspartate Amino Transf (AST/SGOT) 21 Alanine Aminotransferase (ALT/SGPT) 23 Alkaline Phosphatase 62 Total Protein 6.2 Albumin 2.9 L Globulin 3.30 H Albumin/Globulin Ratio 0.87 Vancomycin Level Trough 15.6 Consultation Date/Type/Reason Admit Date/Time Jul 21, 2018 at 19:50 Initial Consult Date Type of Consult ID Exam/Review of Systems Vital Signs Vitals Vital Signs Date Temp Pulse Resp B/P (MAP) Pulse Ox O2 O2 Flow FiO2 Time Delivery Rate 07/26/18 97.8 68 16 84/47 (59) 96 08:00 07/25/18 Room Air 13:52 Intake and Output 07/25/18 07/25/18 07/26/18 1515:00 23:00 07:00 IntakeIntake Total 500 ml 1040 ml 250 ml OutputOutput Total 1450 ml BalanceBalance 500 ml -410 ml 250 ml Medications Medications Current Medications IV Flush (NS 3 ml) 3 ml PER PROTOCOL IV ; Start 07/21/18 at 21:30 Ondansetron HCl (Zofran Inj) 4 mg Q6H PRN IV NAUSEA AND/OR VOMITING; Start 07/21/18 at 21:30 Acetaminophen (Tylenol Tab) 650 mg Q6H PRN PO PAIN LEVEL 1-3 OR FEVER Last administered on 07/22/18at 11:12; Admin Dose 650 MG; Start 07/21/18 at 21:30 Albuterol/ Ipratropium (Duoneb) 3 ml Q2H RESP THERAPY PRN HHN SHORTNESS OF BREATH; Start 07/21/18 at 21:30 Escitalopram Oxalate (Lexapro) 10 mg DAILY PO Last administered on 07/26/18at 09:45; Admin Dose 10 MG; Start 07/22/18 at 09:00 Multivitamins/ Minerals (Theragran-M) 1 tab DAILY PO Last administered on 09:44; Admin Dose 1 TAB; Start 07/22/18 at 09:00 Quetiapine Fumarate (Seroquel) 300 mg HS PO Last administered on 07/25/18at 21:11; Admin Dose 300 MG; Start 07/21/18 at 22:58 Divalproex Sodium (Depakote) 750 mg QHS PO Last administered on 07/25/18at 22:06; Admin Dose 750 MG; Start 07/21/18 at 22:58 Miscellaneous Information Patients own medicat... BID@10,16 XX ; Start 07/22/18 at 10:00 Elvitegravir/ Cobicis/Emtricit/ Tenof (Genvoya Tablet) 1 each DAILY PO Last administered on 07/26/18 11:00; Admin Dose 1 EACH; Start 07/22/18 at 09:00 Nicotine (Nicoderm 14 Mg/ 24hr) 1 patch DAILY TRANSDERM Last administered on 07/26/18 09:44; Admin Dose 1 PATCH; Start 07/22/18 at 13:00 Vancomycin HCl (Vanco Iv Per Pharmacy) VANCOMYCIN PER PHARMACY PER PROTOCOL XX ; Start 07/22/18 at 16:00 Acetaminophen/ Hydrocodone Bitart ([place] (10)) 1 tab Q4H PRN PO MODERATE PAIN LEVEL 4-6 Last administered on 07/26/18 01:29; Admin Dose 1 TAB; Start 07/23/18 at 11:00 Morphine Sulfate (morphine) 10 mg Q3H PRN PO SEVERE PAIN LEVEL 7-10 Last administered on 07/26/18 11:28; Admin Dose 10 MG; Start 07/23/18 at 11:00 Silver Sulfadiazine (Thermazene 1% 25 Gm) 1 applic DAILY TOP Last administered on 07/26/18 09:45; Admin Dose 1 APPLIC; Start 07/23/18 at 17:30 Trimethoprim/ Sulfamethoxazole (Bactrim (Ds)) 1 tab DAILY PO Last administered on 07/26/18 09:44; Admin Dose 1 TAB; Start 07/25/18 at 09:00 Enoxaparin Sodium (Lovenox) 40 mg DAILY SC Last administered on 07/26/18 09:44; Admin Dose 40 MG; Start 07/26/18 at 09:00 Lactobacillus Acidophilus/ Rhamnosus (Culturelle) 1 cap BID PO Last administered on 07/26/18 09:44; Admin Dose 1 CAP; Start 07/25/18 at 21:00 Senna/Docusate Sodium (Senokot-S) 2 tab HS PO Last administered on 07/25/18at 21:11; Admin Dose 2 TAB; Start 07/25/18 at 21:00 Bisacodyl (Dulcolax Supp) 10 mg Q48H PRN OR CONSTIPATION; Start 07/25/18 at 12:30 Bisacodyl (Dulcolax) 10 mg DAILY PRN PO CONSTIPATION Last administered on 07/26/18at 09:50; Admin Dose 10 MG; Start 07/25/18 at 12:30 Docusate Sodium (Colace) 250 mg BID PRN PO CONSTIPATION; Start 07/25/18 at 12:30 Ibuprofen (Motrin) 800 mg Q6H PRN PO MILD PAIN LEVEL 1-3; Start 07/25/18 at 12:30 Vancomycin HCl 1.25 gm/Sodium Chloride 250 ml @ 83.333 mls/ hr Q8H IVPB ; Start 07/26/18 at 23:00 STEPHEN GRANT NP Jul 26, 2018 13:58
[2018-07-26 14:00] VITALS: BP 98/57; PULSE 73; RESP 16
[2018-07-26] MEDS ORDERED: SKIN RESP FACT/SHARK/PH MERCU SUPP PR PRN (17:00)
--- NOTE | 2018-07-26 17:32 | PN ---
Date/Time of Note Date/Time of Note DATE: 07/26/18 TIME: 17:31 Assessment/Plan VTE Prophylaxis Risk score (from Nsg)>0 risk: 3 SCD applied (from Nsg): Yes Pharmacological prophylaxis: LMWH Lines/Catheters IV Catheter Type (from Nrsg): Saline Lock Urinary Cath still in place: No Assessment/Plan Hospital Course SUBJECTIVE: Continues to have right knee pain. OBJECTIVE: Physical Exam General: Adequately build 22 year-old male lying in bed in no apparent distress. HEENT: Normocephalic, atraumatic. Eyes: Anicteric sclerae, conjunctivae clear. ENT: Nasal septum midline, oral mucosa moist. Neck supple, no JVD noticed. Respiratory: Bilaterally clear breath sounds. No use of accessory muscles of respiration. No adventitious breath sounds. Cardiovascular: S1, S2 heard. Regular rate and rhythm. Abdomen: Soft, nontender, and nondistended. Bowel sounds positive in all 4 quadrants. Genitourinary: Deferred. Extremities: No cyanosis, no clubbing, no edema. Right knee dressing. Right lower extremity dressing. Neurologic: Cranial nerves II through XII grossly intact. The patient is awake, alert, and oriented. Labs & Vitals per chart ASSESSMENT & PLAN 22-year-old male with comorbidities including HIV positive status and depression who went to an outside facility because of right knee edema which he refers to be started after an apparent spider bite. The patient was transferred to [facility] for insurance reasons. 1. Right knee cellulitis. -Right knee MRI showing subcutaneous fat phlegmon and possible underlying abscess. -Continue antimicrobials as per ID. -Await orthopedic surgery evaluation. 2. Right lower extremity wound. -Continue antimicrobials as per ID. 3. HIV positive status. -Continue antiretroviral medications. 4. Psych disorder. -Continue mood stabilizers 5. Fluids, electrolytes, and nutrition. - Regular diet. 6. DVT prophylaxis -Subcutaneous Lovenox. 7. Plan. -Continue antimicrobials as per ID. -Await orthopedic surgery evaluation. The patient was seen in collaboration with Dr. Smiley. Result Diagram: 07/26/18 0714 07/26/18 0714 Results 24hrs Laboratory Tests Test 07/26/18 07:14 07/26/18 11:02 White Blood Count 4.6 #L Red Blood Count 3.88 L Hemoglobin 11.1 L Hematocrit 34.4 L Mean Corpuscular Volume 88.7 Mean Corpuscular Hemoglobin 28.6 L Mean Corpuscular Hemoglobin Concent 32.3 Red Cell Distribution Width 12.6 Platelet Count 391 # Mean Platelet Volume 8.4 Immature Granulocytes % 3.400 H Neutrophils % 53.9 Lymphocytes % 22.8 Monocytes % 11.0 Eosinophils % 8.0 H Basophils % 0.9 Nucleated Red Blood Cells % 0.0 Immature Granulocytes # 0.160 H Neutrophils # 2.5 Lymphocytes # 1.1 Monocytes # 0.5 Eosinophils # 0.4 Basophils # 0.0 Nucleated Red Blood Cells # 0.0 Sodium Level 141 Potassium Level 4.6 Chloride Level 100 Carbon Dioxide Level 32 H Anion Gap 9 Blood Urea Nitrogen 9 Creatinine 0.75 Est Glomerular Filtrat Rate mL/min > 60 Glucose Level 96 Calcium Level 8.7 Total Bilirubin 0.0 L Direct Bilirubin 0.00 Indirect Bilirubin 0.0 Aspartate Amino Transf (AST/SGOT) 21 Alanine Aminotransferase (ALT/SGPT) 23 Alkaline Phosphatase 62 Total Protein 6.2 Albumin 2.9 L Globulin 3.30 H Albumin/Globulin Ratio 0.87 Vancomycin Level Trough 15.6 Exam/Review of Systems Vital Signs Vitals Vital Signs Date Temp Pulse Resp B/P (MAP) Pulse Ox O2 O2 Flow FiO2 Time Delivery Rate 07/26/18 97.8 68 16 84/47 (59) 96 08:00 07/25/18 Room Air 13:52 Intake and Output 07/25/18 07/25/18 07/26/18 1515:00 23:00 07:00 IntakeIntake Total 500 ml 1040 ml 250 ml OutputOutput Total 1450 ml BalanceBalance 500 ml -410 ml 250 ml Medications Medications Current Medications IV Flush (NS 3 ml) 3 ml PER PROTOCOL IV ; Start 07/21/18 at 21:30 Ondansetron HCl (Zofran Inj) 4 mg Q6H PRN IV NAUSEA AND/OR VOMITING; Start 07/21/18 at 21:30 Acetaminophen (Tylenol Tab) 650 mg Q6H PRN PO PAIN LEVEL 1-3 OR FEVER Last administered on 07/22/18at 11:12; Admin Dose 650 MG; Start 07/21/18 at 21:30 Albuterol/ Ipratropium (Duoneb) 3 ml Q2H RESP THERAPY PRN HHN SHORTNESS OF BREATH; Start 07/21/18 at 21:30 Escitalopram Oxalate (Lexapro) 10 mg DAILY PO Last administered on 07/26/18 09 :45; Admin Dose 10 MG; Start 07/22/18 at 09:00 Multivitamins/ Minerals (Theragran-M) 1 tab DAILY PO Last administered on 07/26/18 09:44; Admin Dose 1 TAB; Start 07/22/18 at 09:00 Quetiapine Fumarate (Seroquel) 300 mg HS PO Last administered on 07/25/18 21:11; Admin Dose 300 MG; Start 07/21/18 at 22:58 Divalproex Sodium (Depakote) 750 mg QHS PO Last administered on 07/25/18 22:06; Admin Dose 750 MG; Start 07/21/18 at 22:58 Miscellaneous Information Patients own medicat... BID@10,16 XX ; Start 07/22/18 at 10:00 Elvitegravir/ Cobicis/Emtricit/ Tenof (Genvoya Tablet) 1 each DAILY PO Last administered on 07/26/18 11:00; Admin Dose 1 EACH; Start 07/22/18 at 09:00 Nicotine (Nicoderm 14 Mg/ 24hr) 1 patch DAILY TRANSDERM Last administered on 07/26/18 09:44; Admin Dose 1 PATCH; Start 07/22/18 at 13:00 Vancomycin HCl (Vanco Iv Per Pharmacy) VANCOMYCIN PER PHARMACY PER PROTOCOL XX ; Start 07/22/18 at 16:00 Acetaminophen/ Hydrocodone Bitart ([place] (10/325)) 1 tab Q4H PRN PO MODERATE PAIN LEVEL 4-6 Last administered on 07/26/18 14:35; Admin Dose 1 TAB; Start 07/23/18 at 11:00 Morphine Sulfate (morphine) 10 mg Q3H PRN PO SEVERE PAIN LEVEL 7-10 Last administered on 07/26/18 11:28; Admin Dose 10 MG; Start 07/23/18 at 11:00 Silver Sulfadiazine (Thermazene 1% 25 Gm) 1 applic DAILY TOP Last administered on 07/26/18 09:45; Admin Dose 1 APPLIC; Start 07/23/18 at 17:30 Trimethoprim/ Sulfamethoxazole (Bactrim (Ds)) 1 tab DAILY PO Last administered on 1/7/19at 09:44; Admin Dose 1 TAB; Start 07/25/18 at 09:00 Enoxaparin Sodium (Lovenox) 40 mg DAILY SC Last administered on 07/26/18 09:44; Admin Dose 40 MG; Start 07/26/18 at 09:00 Lactobacillus Acidophilus/ Rhamnosus (Culturelle) 1 cap BID PO Last adm inistered on 07/26/18 09:44; Admin Dose 1 CAP; Start 07/25/18 at 21:00 Senna/Docusate Sodium (Senokot-S) 2 tab HS PO Last administered on 07/25/18at 21:11; Admin Dose 2 TAB; Start 07/25/18 at 21:00 Bisacodyl (Dulcolax Supp) 10 mg Q48H PRN [place] CONSTIPATION; Start 07/25/18 at 12:30 Bisacodyl (Dulcolax) 10 mg DAILY PRN [place] CONSTIP[place] Last administered on 07/26/18at 09:50; Admin Dose 10 MG; Start 07/25/18 at 12:30 Docusate Sodium (Colace) 250 mg BID PRN PO CONSTIPATION; Start 07/25/18 at 12:30 Ibuprofen (Motrin) 800 mg Q6H PRN PO MILD PAIN LEVEL 1-3; Start 07/25/18 at 12:30 Vancomycin HCl 1.25 gm/Sodium Chloride 250 ml @ 83.333 mls/ hr Q8H IVPB ; Start 07/26/18 at 23:00 Skin Resp Fact/ Shark/Phenyl Mercur (Hemorrhoidal Supp) 1 ea QHS PRN [place] PAIN; Start 07/26/18 at 17:00 JOAN MCNEIL NP Jul 26, 2018 17:32
--- NOTE | 2018-07-26 18:26 | CONS ---
DATE OF ADMISSION: 07/21/2018 DATE OF CONSULTATION: 07/26/2018 TYPE OF CONSULTATION: Orthopedic surgical. HISTORY OF PRESENT ILLNESS: The patient is a 22-year-old male with the known history of HIV positive and history of drug abuse, who was admitted on 07/21/2018 when he was referred to the emergency room from outside clinic because of the insurance arrangement. According to the patient, he woke up with a small area of swelling and pain involving the medial aspect of his right knee and anterolateral as pect of his right leg. This started about 2 weeks ago and because of the worsening and pain and swel ling, he went to the outside clinic and [facility] He de nies any history of fever or chills. He claims that he is feeling better with IV antibiotics since h is admission to the hospital. He has been seen by the wound care nurse and has been treated with proper dressings. PHYSICAL EXAMINATION: My examination revealed a 22-year-old male who was not in any acute distress. He is afebrile and has been afebrile since his admission, but there was no leukocytosis. There was a small open wound covered with scab over the anterolateral aspect of the lower leg with minimal disc harge. There were no signs of acute cellulitis around this wound. There was another wound over the anterior medial aspect of the right knee with scanty discharge. Again, there were no signs of fluid collection subcutaneously and there were mild signs of cellulitis in the surrounding soft tissue. Th ere were no signs of right knee joint involvement. There were no effusions. There were no acute ten derness and there is no redness. There were no signs of ascending lymphangitis. DIAGNOSTIC DATA: The MRI scan of the right knee was available for my review and it revealed a small skin defect over the anteromedial aspect of the right knee, which is communicating with the subcutane ous tissues through a small channel. This lesion is to the vastus medialis muscle. IMPRESSION: 1. Subcutaneous phlegmon involving fat tissue with the communication to the skin of open wound over the skin without any evidence of knee joint or muscular tenderness or skeletal involvement. 2. Another small open wound over the anterolateral aspect of the right lower leg. RECOMMENDATIONS FOR TREATMENT: 1. Continuous wound care by wound care nurse. 2. Continuous IV antibiotics. 3. Not a candidate for any surgical intervention at this time. Dictated By: MARIE JOHNSON/ALEXEY Conf#: [id number] DID#: [id number] CC: MELISSA ORTIZ MD; ERASMO LUCIO MD; JEWELL VALENZUELA MD;*EndCC*
[2018-07-26 20:14] VITALS: BP 85/55; PULSE 61; RESP 18
[2018-07-26] MEDS: QUETIAPINE 100 MG TAB PO SCH (20:16)
[2018-07-26] MEDS: SENNA/DOCUSATE NA (8.6MG/50MG) TAB PO SCH (20:17)
[2018-07-26] MEDS: DIVALPROEX (EC) 250 MG TAB PO SCH (20:17)
[2018-07-26] MEDS: VANCOMYCIN 1.25 GM in SOD CHLORIDE 0.9% 250 ML IVPB SCH (22:47)
[2018-07-27 01:18] VITALS: BP 81/49; PULSE 76; RESP 18
[2018-07-27] MEDS: VANCOMYCIN 1.25 GM in SOD CHLORIDE 0.9% 250 ML IVPB SCH ×3 (06:37→22:57)
[2018-07-27 07:42] VITALS: BP 84/53; PULSE 60; RESP 16
[2018-07-27] MEDS: MULTIVITAMINS/MINERALS TAB PO SCH (08:35)
[2018-07-27] MEDS: NICOTINE (14 MG/24 HR) PATCH TRANSDERM SCH (08:36)
[2018-07-27] MEDS: ENOXAPARIN 40 MG/0.4 ML SYG SC SCH (08:36)
[2018-07-27] MEDS: TRIMETHOPRIM/SULFAMETHOX (DS) TAB PO SCH (08:36)
[2018-07-27] MEDS: ESCITALOPRAM 10 MG TAB PO SCH (08:36)
[2018-07-27] MEDS: LACTOBACILLUS RHAMNOSUS CAP PO SCH ×2 (08:36→21:22)
[2018-07-27] MEDS: SILVER SULFADIAZINE 1% 25 GM CR TOP SCH (08:37)
[2018-07-27] MEDS: ELVITEG/COBI/EMTRIC/TENOFO ALA 1 EACH TABLET PO SCH (09:33)
[2018-07-27] MEDS: HYDROCODONE/APAP (10/325) TAB PO PRN (12:13)
--- NOTE | 2018-07-27 13:55 | CONS ---
Date/Time of Note Date/Time of Note DATE: 07/27/18 TIME: 13:53 Assessment/Plan Assessment/Plan Hospital Course Patient is alert feels better no fevers overnight vital signs stable. BUN 7 creatinine 0.69 Drainage culture grew MRSA Antimicrobials: Vancomycin, Bactrim for PCP prophylaxis MRI of the knee revealed subcutaneous fat phlegmon with likely fistulous connection to the skin of the right knee cannot exclude developing abscess. Fluid is seen superficial to the distal vastus medialis, cannot exclude muscular edema at the lateral and posterior distal vastus medialis Physical examination: Well-nourished well-developed young man who is alert in no distress. Head atraumatic normocephalic neck is supple chest rise symmetrical breath sounds diminished bases heart S1-S2 abdomen soft bowel sounds present extremities with right knee swelling erythema and area of fluctuance. Bilateral lower extremities with multiple scabs below knees from scratching Assessment: 1. Right knee MRSA abscess, r/o septic joint 2. AIDS===> CD4 177, patient is on Genvoya 3. Bipolar versus schizophrenia Plan: Patient remained stable, right lower extremity looks much better, Ortho recommendations noted, continue antibiotics for now, anticipate discharge on oral Bactrim DS twice daily to complete 2 weeks antibiotics then changed to once daily for PCP prophylaxis, continue HIV medications and outpatient follow-up at HIV clinic Result Diagram: 07/27/18 0656 07/27/18 0656 Results 24hrs Laboratory Tests Test 07/27/18 06:56 White Blood Count 3.7 L Red Blood Count 4.23 L Hemoglobin 12.1 L Hematocrit 37.9 L Mean Corpuscular Volume 89.6 Mean Corpuscular Hemoglobin 28.6 L Mean Corpuscular Hemoglobin Concent 31.9 L Red Cell Distribution Width 12.5 Platelet Count 425 H Mean Platelet Volume 8.0 Immature Granulocytes % 6.800 H Neutrophils % Segmented Neutrophils % (Manual) 42 Band Neutrophils % (Manual) 2 Lymphocytes % Lymphocytes % (Manual) 26 Reactive Lymphocytes % (Manual) 4 H Monocytes % Monocytes % (Manual) 9 Eosinophils % Eosinophils % (Manual) 10 H Basophils % Basophils % (Manual) 1 Metamyelocytes % (manual) 1 H Myelocytes % (Manual) 4 H Promyelocytes % (Manual) 1 H Nucleated Red Blood Cells % 0.0 Immature Granulocytes # 0.250 H Neutrophils # Neutrophils # (Manual) 1.6 Band Neutrophils # 0.0 Lymphocytes (Manual) 0.9 Lymphocytes # Reactive Lymphocytes # 0.1 H Monocytes # Monocytes # (Manual) 0.3 Eosinophils # Basophils # Basophils # (Manual) 0.0 Metamyelocytes # 0.0 Myelocytes # 0.1 H Promyelocytes # 0.0 Nucleated Red Blood Cells # Platelet Estimate NORMAL Polychromasia 3+ Anisocytosis 1+ Microcytosis 1+ Sodium Level 141 Potassium Level 4.0 Chloride Level 103 Carbon Dioxide Level 31 Anion Gap 7 Blood Urea Nitrogen 7 Creatinine 0.69 Est Glomerular Filtrat Rate mL/min > 60 Glucose Level 96 Calcium Level 9.1 Phosphorus Level 5.0 H Magnesium Level 2.0 Consultation Date/Type/Reason Admit Date/Time Jul 21, 2018 at 19:50 Initial Consult Date Type of Consult ID Exam/Review of Systems Vital Signs Vitals Vital Signs Date Temp Pulse Resp B/P (MAP) Pulse Ox O2 O2 Flow FiO2 Time Delivery Rate 07/27/18 97.9 60 16 84/53 (63) 95 Room Air 07:42 Intake and Output 07/26/18 07/26/18 07/27/18 1515:00 23:00 07:00 IntakeIntake Total 810 ml 490 ml 250 ml OutputOutput Total 1300 ml 700 ml BalanceBalance -490 ml 490 ml -450 ml Medications Medications Current Medications IV Flush (NS 3 ml) 3 ml PER PROTOCOL IV ; Start 07/21/18 at 21:30 Ondansetron HCl (Zofran Inj) 4 mg Q6H PRN IV NAUSEA AND/OR VOMITING; Start 07/21/18 at 21:30 Acetaminophen (Tylenol Tab) 650 mg Q6H PRN PO PAIN LEVEL 1-3 OR FEVER Last ad ministered on 07/22/18at 11:12; Admin Dose 650 MG; Start 07/21/18 at 21:30 Albuterol/ Ipratropium (Duoneb) 3 ml Q2H RESP THERAPY PRN HHN SHORTNESS OF BREATH; Start 07/21/18 at 21:30 Escitalopram Oxalate (Lexapro) 10 mg DAILY PO Last administered on 07/27/18at 08:36; Admin Dose 10 MG; Start 07/22/18 at 09:00 Multivitamins/ Minerals (Theragran-M) 1 tab DAILY PO Last administered on 07/27/18at 08:35; Admin Dose 1 TAB; Start 07/22/18 at 09:00 Quetiapine Fumarate (Seroquel) 300 mg HS PO Last administered on 07/26/18 20:16; Admin Dose 300 MG; Start 07/21/18 at 22:58 Divalproex Sodium (Depakote) 750 mg QHS PO Last administered on 07/26/18 20:17; Admin Dose 750 MG; Start 07/21/18 at 22:58 Miscellaneous Information Patients own medicat... BID@ XX ; Start 07/22/18 at 10:00 Elvitegravir/ Cobicis/Emtricit/ Tenof (Genvoya Tablet) 1 each DAILY PO Last administered on 07/27/18 09:33; Admin Dose 1 EACH; Start 07/22/18 at 09:00 Nicotine (Nicoderm 14 Mg/ 24hr) 1 patch DAILY TRANSDERM Last administered on 07/27/18 08:36; Admin Dose 1 PATCH; Start 07/22/18 at 13:00 Vancomycin HCl (Vanco Iv Per Pharmacy) VANCOMYCIN PER PHARMACY PER PROTOCOL XX ; Start 07/22/18 at 16:00 Acetaminophen/ Hydrocodone Bitart ([place] (10/325)) 1 tab Q4H PRN PO MODERATE PAIN LEVEL 4-6 Last administered on 07/27/18 12:13; Admin Dose 1 TAB; Start 07/23/18 at 11:00 Morphine Sulfate (morphine) 10 mg Q3H PRN PO SEVERE PAIN LEVEL 7-10 Last administered on 07/26/18 17:46; Admin Dose 10 MG; Start 07/23/18 at 11:00 Silver Sulfadiazine (Thermazene 1% 25 Gm) 1 applic DAILY TOP Last administered on 07/27/18 08:37; Admin Dose 1 APPLIC; Start 07/23/18 at 17:30 Trimethoprim/ Sulfamethoxazole (Bactrim (Ds)) 1 tab DAILY PO Last administered on 07/27/18 08:36; Admin Dose 1 TAB; Start 07/25/18 at 09:00 Enoxaparin Sodium (Lovenox) 40 mg DAILY SC Last administered on 07/27/18 08:36; Admin Dose 40 MG; Start 07/26/18 at 09:00 Lactobacillus Acidophilus/ Rhamnosus (Culturelle) 1 cap BID PO Last administered on 07/27/18at 08:36; Admin Dose 1 CAP; Start 07/25/18 at 21:00 Senna/Docusate Sodium (Senokot-S) 2 tab HS PO Last administered on 07/26/18at 20:17; Admin Dose 2 TAB; Start 07/25/18 at 21:00 Bisacodyl (Dulcolax Supp) 10 mg Q48H PRN [place] CONSTIPATION; Start 07/25/18 at 12:30 Bisacodyl (Dulcolax) 10 mg DAILY PRN PO CONSTIPATION Last administered on 07/26/18at 09:50; Admin Dose 10 MG; Start 07/25/18 at 12:30 Docusate Sodium (Colace) 250 mg BID PRN PO CONSTIPATION; Start 07/25/18 at 12:30 Ibuprofen (Motrin) 800 mg Q6H PRN PO MILD PAIN LEVEL 1-3; Start 07/25/18 at 12:30 Vancomycin HCl 1.25 gm/Sodium Chloride 250 ml @ 83.333 mls/ hr Q8H IVPB Last administered on 07/27/18at 06:37; Admin Dose 83.333 MLS/HR; Start 07/26/18 at 23:00 Skin Resp Fact/ Shark/Phenyl Mercur (Hemorrhoidal Supp) 1 ea QHS PRN [place] PAIN; Start 07/26/18 at 17:00 STEPHEN GRANT NP Jul 27, 2018 13:55
[2018-07-27 14:14] VITALS: BP 108/53; PULSE 70; RESP 16
--- NOTE | 2018-07-27 17:49 | PN ---
Date/Time of Note Date/Time of Note DATE: 07/27/18 TIME: 17:47 Assessment/Plan VTE Prophylaxis Risk score (from Nsg)>0 risk: 1 SCD applied (from Nsg): Yes Pharmacological prophylaxis: LMWH Lines/Catheters IV Catheter Type (from Nrsg): Saline Lock Urinary Cath still in place: No Assessment/Plan Hospital Course SUBJECTIVE: Continues to have right knee pain. OBJECTIVE: Physical Exam General: Adequately build 22 year-old male lying in bed in no apparent distress. HEENT: Normocephalic, atraumatic. Eyes: Anicteric sclerae, conjunctivae clear. ENT: Nasal septum midline, oral mucosa moist. Neck supple, no JVD noticed. Respiratory: Bilaterally clear breath sounds. No use of accessory muscles of respiration. No adventitious breath sounds. Cardiovascular: S1, S2 heard. Regular rate and rhythm. Abdomen: Soft, nontender, and nondistended. Bowel sounds positive in all 4 quadrants. Genitourinary: Deferred. Extremities: No cyanosis, no clubbing, no edema. Right knee dressing. Right lower extremity dressing. Neurologic: Cranial nerves II through XII grossly intact. The patient is awake, alert, and oriented. Labs & Vitals per chart ASSESSMENT & PLAN 22-year-old male with comorbidities including HIV positive status and depression who went to an outside facility because of right knee edema which he refers to be started after an apparent spider bite. The patient was transferred to [facility] for insurance reasons. 1. Subcutaneous phlegmon involving fat tissue with the communication to the skin of open wound over the skin without any evidence of knee joint or muscular tenderness or skeletal involvement. -S/P evaluation orthopedic surgery recommended no surgical intervention, but the local wound care and IV antibiotics. 2. Right lower extremity wound. -Continue antimicrobials as per ID. 3. HIV positive status. -Continue antiretroviral medications. 4. Psych disorder. -Continue mood stabilizers 5. Fluids, electrolytes, and nutrition. - Regular diet. 6. DVT prophylaxis -Subcutaneous Lovenox. 7. Plan. -Continue antimicrobials as per ID. -Await clinical improvement. The patient was seen in collaboration with Dr. Smiley. Result Diagram: 07/27/18 0656 07/27/18 0656 Results 24hrs Laboratory Tests Test 07/27/18 06:56 White Blood Count 3.7 L Red Blood Count 4.23 L Hemoglobin 12.1 L Hematocrit 37.9 L Mean Corpuscular Volume 89.6 Mean Corpuscular Hemoglobin 28.6 L Mean Corpuscular Hemoglobin Concent 31.9 L Red Cell Distribution Width 12.5 Platelet Count 425 H Mean Platelet Volume 8.0 Immature Granulocytes % 6.800 H Neutrophils % Segmented Neutrophils % (Manual) 42 Band Neutrophils % (Manual) 2 Lymphocytes % Lymphocytes % (Manual) 26 Reactive Lymphocytes % (Manual) 4 H Monocytes % Monocytes % (Manual) 9 Eosinophils % Eosinophils % (Manual) 10 H Basophils % Basophils % (Manual) 1 Metamyelocytes % (manual) 1 H Myelocytes % (Manual) 4 H Promyelocytes % (Manual) 1 H Nucleated Red Blood Cells % 0.0 Immature Granulocytes # 0.250 H Neutrophils # Neutrophils # (Manual) 1.6 Band Neutrophils # 0.0 Lymphocytes (Manual) 0.9 Lymphocytes # Reactive Lymphocytes # 0.1 H Monocytes # Monocytes # (Manual) 0.3 Eosinophils # Basophils # Basophils # (Manual) 0.0 Metamyelocytes # 0.0 Myelocytes # 0.1 H Promyelocytes # 0.0 Nucleated Red Blood Cells # Platelet Estimate NORMAL Polychromasia 3+ Anisocytosis 1+ Microcytosis 1+ Sodium Level 141 Potassium Level 4.0 Chloride Level 103 Carbon Dioxide Level 31 Anion Gap 7 Blood Urea Nitrogen 7 Creatinine 0.69 Est Glomerular Filtrat Rate mL/min > 60 Glucose Level 96 Calcium Level 9.1 Phosphorus Level 5.0 H Magnesium Level 2.0 Exam/Review of Systems Vital Signs Vitals Vital Signs Date Temp Pulse Resp B/P (MAP) Pulse Ox O2 O2 Flow FiO2 Time Delivery Rate 07/27/18 97.5 70 16 108/53 97 Room Air 14:14 (71) Intake and Output 07/26/18 07/26/18 07/27/18 1515:00 23:00 07:00 IntakeIntake Total 810 ml 490 ml 250 ml OutputOutput Total 1300 ml 700 ml BalanceBalance -490 ml 490 ml -450 ml Medications Medications Current Medications IV Flush (NS 3 ml) 3 ml PER PROTOCOL IV ; Start 07/21/18 at 21:30 Ondansetron HCl (Zofran Inj) 4 mg Q6H PRN IV NAUSEA AND/OR VOMITING; Start 07/21/18 at 21:30 Acetaminophen (Tylenol Tab) 650 mg Q6H PRN PO PAIN LEVEL 1-3 OR FEVER Last administered on 07/22/18 11:12; Admin Dose 650 MG; Start 07/21/18 at 21:30 Albuterol/ Ipratropium (Duoneb) 3 ml Q2H RESP THERAPY PRN HHN SHORTNESS OF BREATH; Start 07/21/18 at 21:30 Escitalopram Oxalate (Lexapro) 10 mg DAILY PO Last administered on 07/27/18 08:36; Admin Dose 10 MG; Start 07/22/18 at 09:00 Multivitamins/ Minerals (Theragran-M) 1 tab DAILY PO Last administered on 07/27/18 08:35; Admin Dose 1 TAB; Start 07/22/18 at 09:00 Quetiapine Fumarate (Seroquel) 300 mg HS PO Last administered on 07/26/18 20:16; Admin Dose 300 MG; Start 07/21/18 at 22:58 Divalproex Sodium (Depakote) 750 mg QHS PO Last administered on 07/26/18 20:17; Admin Dose 750 MG; Start 07/21/18 at 22:58 Miscellaneous Information Patients own medicat... BID@ XX ; Start 07/22/18 at 10:00 Elvitegravir/ Cobicis/Emtricit/ Tenof (Genvoya Tablet) 1 each DAILY PO Last administered on 07/27/18 09:33; Admin Dose 1 EACH; Start 07/22/18 at 09:00 Nicotine (Nicoderm 14 Mg/ 24hr) 1 patch DAILY TRANSDERM Last administered on 07/27/18 08:36; Admin Dose 1 PATCH; Start 07/22/18 at 13:00 Vancomycin HCl (Vanco Iv Per Pharmacy) VANCOMYCIN PER PHARMACY PER PROTOCOL XX ; Start 07/22/18 at 16:00 Acetaminophen/ Hydrocodone Bitart ([place] (10/325)) 1 tab Q4H PRN PO MODERATE PAIN LEVEL 4-6 Last administered on 07/27/18 12:13; Admin Dose 1 TAB; Start 07/23/18 at 11:00 Morphine Sulfate (morphine) 10 mg Q3H PRN PO SEVERE PAIN LEVEL 7-10 Last administered on 07/26/18 17:46; Admin Dose 10 MG; Start 07/23/18 at 11:00 Silver Sulfadiazine (Thermazene 1% 25 Gm) 1 applic DAILY TOP Last administered on 07/27/18 08:37; Admin Dose 1 APPLIC; Start 07/23/18 at 17:30 Trimethoprim/ Sulfamethoxazole (Bactrim (Ds)) 1 tab DAILY PO Last administered on 07/27/18 08:36; Admin Dose 1 TAB; Start 07/25/18 at 09:00 Enoxaparin Sodium (Lovenox) 40 mg DAILY SC Last administered on 07/27/18 08:36; Admin Dose 40 MG; Start 07/26/18 at 09:00 Lactobacillus Acidophilus/ Rhamnosus (Culturelle) 1 cap BID PO Last administered on 07/27/18 08:36; Admin Dose 1 CAP; Start 07/25/18 at 21:00 Senna/Docusate Sodium (Senokot-S) 2 tab HS PO Last administered on 07/26/18 20:17; Admin Dose 2 TAB; Start 07/25/18 at 21:00 Bisacodyl (Dulcolax Supp) 10 mg Q48H PRN [place] CONSTIPATION; Start 07/25/18 at 12:30 Bisacodyl (Dulcolax) 10 mg DAILY PRN PO CONSTIPATION Last administered on 07/26/18 09:50; Admin Dose 10 MG; Start 07/25/18 at 12:30 Docusate Sodium (Colace) 250 mg BID PRN PO CONSTIPATION; Start 07/25/18 at 12:30 Ibuprofen (Motrin) 800 mg Q6H PRN PO MILD PAIN LEVEL 1-3 Last administered on 07/27/18 14:30; Admin Dose 800 MG; Start 07/25/18 at 12:30 Vancomycin HCl 1.25 gm/Sodium Chloride 250 ml @ 83.333 mls/ hr Q8H IVPB Last administered on 07/27/18 15:26; Admin Dose 83.333 MLS/HR; Start 07/26/18 at 23:00 Skin Resp Fact/ Shark/Phenyl Mercur (Hemorrhoidal Supp) 1 ea QHS PRN [place] PAIN; Start 07/26/18 at 17:00 JOAN MCNEIL NP Jul 27, 2018 17:49
[2018-07-27 19:27] VITALS: BP 100/57; PULSE 63; RESP 18
[2018-07-27] MEDS: QUETIAPINE 100 MG TAB PO SCH (21:22)
[2018-07-27] MEDS: SENNA/DOCUSATE NA (8.6MG/50MG) TAB PO SCH (21:22)
[2018-07-27] MEDS: DIVALPROEX (EC) 250 MG TAB PO SCH (21:22)
[2018-07-28 02:00] VITALS: BP 105/56; PULSE 77; RESP 18
[2018-07-28] MEDS: VANCOMYCIN 1.25 GM in SOD CHLORIDE 0.9% 250 ML IVPB SCH ×2 (06:34→15:00)
[2018-07-28 08:03] VITALS: BP 94/54; PULSE 57; RESP 17
[2018-07-28] MEDS: LACTOBACILLUS RHAMNOSUS CAP PO SCH (08:47)
[2018-07-28] MEDS: NICOTINE (14 MG/24 HR) PATCH TRANSDERM SCH (08:47)
[2018-07-28] MEDS: TRIMETHOPRIM/SULFAMETHOX (DS) TAB PO SCH (08:47)
[2018-07-28] MEDS: ESCITALOPRAM 10 MG TAB PO SCH (08:47)
[2018-07-28] MEDS: MULTIVITAMINS/MINERALS TAB PO SCH (08:47)
[2018-07-28] MEDS: ENOXAPARIN 40 MG/0.4 ML SYG SC SCH (08:48)
[2018-07-28] MEDS: SILVER SULFADIAZINE 1% 25 GM CR TOP SCH (08:49)
[2018-07-28] MEDS: ELVITEG/COBI/EMTRIC/TENOFO ALA 1 EACH TABLET PO SCH (10:06)
[2018-07-28] MEDS ORDERED: SULF1TAB31 PO (11:37)
[2018-07-28] MEDS ORDERED: SILV20CR12 TOP (11:38)
--- NOTE | 2018-07-28 11:40 | PDOCDIS ---
Discharge Instructions CONDITION [id number] Patient Condition: [id number] Stable HOME CARE INSTRUCTIONS: [id number] Diet Instructions: [id number] Regular [id number] Special Diet: [id number] Regular FOLLOW UP/APPOINTMENTS Follow-up Plan Elvis Hernandez MD Specialty: Internal Medicine Office Address: [address] [place] [address] [place], [place] [id number] Office OTHER ORDERS: Other Orders: 1. Resume home medications. 2. Complete the course of antimicrobials (Bactrim DS twice daily times 14 days). 3. Resume activities as tolerated. 4. Do dressing changes of the wound as instructed. 5. Follow-up with HIV clinic. 6. Follow-up with your primary care physician in 2 weeks. If you do not have a primary care physician, please call Dr. Elvis Hernandez's office. 7. Please go to the nearest emergency room if you have persistent fevers, worsening wound drainage, or any other unusual signs/symptoms. JOAN MCNEIL NP Jul 28, 2018 11:40
--- NOTE | 2018-07-28 13:34 | CONS ---
Date/Time of Note Date/Time of Note DATE: 07/28/18 TIME: 13:33 Assessment/Plan Assessment/Plan Hospital Course No acute events overnight, alert feels better, looks comfortable, no fevers Drainage culture grew MRSA Antimicrobials: Vancomycin, Bactrim for PCP prophylaxis MRI of the knee revealed subcutaneous fat phlegmon with likely fistulous connection to the skin of the right knee cannot exclude developing abscess. Fluid is seen superficial to the distal vastus medialis, cannot exclude muscular edema at the lateral and posterior distal vastus medialis Physical examination: Well-nourished well-developed young man who is alert in no distress. Head atraumatic normocephalic neck is supple chest rise symmetrical breath sounds diminished bases heart S1-S2 abdomen soft bowel sounds present extremities with right knee swelling erythema and area of fluctuance. Bilateral lower extremities with multiple scabs below knees from scratching Assessment: 1. Right knee MRSA abscess, resolving 2. AIDS===> CD4 177, patient is on Genvoya 3. Bipolar versus schizophrenia Plan: Continues to improve, anticipate discharge on oral Bactrim DS twice daily to complete 2 weeks antibiotics then changed to once daily for PCP prophylaxis, continue HIV medications and outpatient follow-up at HIV clinic Result Diagram: 07/27/18 0656 07/27/18 0656 Consultation Date/Type/Reason Admit Date/Time Jul 21, 2018 at 19:50 Initial Consult Date Type of Consult ID Exam/Review of Systems Vital Signs Vitals Vital Signs Date Temp Pulse Resp B/P (MAP) Pulse Ox O2 O2 Flow FiO2 Time Delivery Rate 07/28/18 98.0 57 17 94/54 (67) 100 Room Air 08:03 Intake and Output 07/27/18 07/27/18 07/28/18 1515:00 23:00 07:00 IntakeIntake Total 250 ml 1350 ml 250 ml OutputOutput Total 500 ml 900 ml BalanceBalance -250 ml 450 ml 250 ml Medications Medications Current Medications IV Flush (NS 3 ml) 3 ml PER PROTOCOL IV ; Start 07/21/18 at 21:30 Ondansetron HCl (Zofran Inj) 4 mg Q6H PRN IV NAUSEA AND/OR VOMITING; Start 07/21/18 at 21:30 Acetaminophen (Tylenol Tab) 650 mg Q6H PRN PO PAIN LEVEL 1-3 OR FEVER Last administered on 07/22/18at 11:12; Admin Dose 650 MG; Start 07/21/18 at 21:30 Albuterol/ Ipratropium (Duoneb) 3 ml Q2H RESP THERAPY PRN HHN SHORTNESS OF BREATH; Start 07/21/18 at 21:30 Escitalopram Oxalate (Lexapro) 10 mg DAILY PO Last administered on 07/28/18 08:47; Admin Dose 10 MG; Start 07/22/18 at 09:00 Multivitamins/ Minerals (Theragran-M) 1 tab DAILY PO Last administered on 07/28/18 08:47; Admin Dose 1 TAB; Start 07/22/18 at 09:00 Quetiapine Fumarate (Seroquel) 300 mg HS PO Last administered on 07/27/18 21:22; Admin Dose 300 MG; Start 07/21/18 at 22:58 Divalproex Sodium (Depakote) 750 mg QHS PO Last administered on 07/27/18 21:22; Admin Dose 750 MG; Start 07/21/18 at 22:58 Miscellaneous Information Patients own medicat... BID@ XX ; Start 07/22/18 at 10:00 Elvitegravir/ Cobicis/Emtricit/ Tenof (Genvoya Tablet) 1 each DAILY PO Last administered on 07/28/18 10:06; Admin Dose 1 EACH; Start 07/22/18 at 09:00 Nicotine (Nicoderm 14 Mg/ 24hr) 1 patch DAILY TRANSDERM Last administered on 07/28/18 08:47; Admin Dose 1 PATCH; Start 07/22/18 at 13:00 Vancomycin HCl (Vanco Iv Per Pharmacy) VANCOMYCIN PER PHARMACY PER PROTOCOL XX ; Start 07/22/18 at 16:00 Acetaminophen/ Hydrocodone Bitart (Mora (10/325)) 1 tab Q4H PRN PO MODERATE PAIN LEVEL 4-6 Last administered on 07/27/18 12:13; Admin Dose 1 TAB; Start 07/23/18 at 11:00 Morphine Sulfate (morphine) 10 mg Q3H PRN PO SEVERE PAIN LEVEL 7-10 Last administered on 07/26/18 17:46; Admin Dose 10 MG; Start 07/23/18 at 11:00 Silver Sulfadiazine (Thermazene 1% 25 Gm) 1 applic DAILY TOP Last administered on 07/28/18 08:49; Admin Dose 1 APPLIC; Start 07/23/18 at 17:30 Trimethoprim/ Sulfamethoxazole (Bactrim (Ds)) 1 tab DAILY PO Last administered on 07/28/18 08:47; Admin Dose 1 TAB; Start 07/25/18 at 09:00 Enoxaparin Sodium (Lovenox) 40 mg DAILY SC Last administered on 07/28/18 08:48; Admin Dose 40 MG; Start 07/26/18 at 09:00 Lactobacillus Acidophilus/ Rhamnosus (Culturelle) 1 cap BID PO Last administered on 07/28/18 08:47; Admin Dose 1 CAP; Start 07/25/18 at 21:00 Senna/Docusate Sodium (Senokot-S) 2 tab HS PO Last administered on 07/27/18 21: 22; Admin Dose 2 TAB; Start 07/25/18 at 21:00 Bisacodyl (Dulcolax Supp) 10 mg Q48H PRN NC CONSTIPATION; Start 07/25/18 at 12:30 Bisacodyl (Dulcolax) 10 mg DAILY PRN PO CONSTIPATION Last administered on 07/26/18 09:50; Admin Dose 10 MG; Start 07/25/18 at 12:30 Docusate Sodium (Colace) 250 mg BID PRN PO CONSTIPATION; Start 07/25/18 at 12:30 Ibuprofen (Motrin) 800 mg Q6H PRN PO MILD PAIN LEVEL 1-3 Last administered on 07/27/18 14:30; Admin Dose 800 MG; Start 07/25/18 at 12:30 Vancomycin HCl 1.25 gm/Sodium Chloride 250 ml @ 83.333 mls/ hr Q8H IVPB Last administered on 07/28/18 06:34; Admin Dose 83.333 MLS/HR; Start 07/26/18 at 23:00 Skin Resp Fact/ Shark/Phenyl Mercur (Hemorrhoidal Supp) 1 ea QHS PRN NC PAIN; Start 07/26/18 at 17:00 STEPHEN GRANT NP Jul 28, 2018 13:34
--- NOTE | 2018-07-28 14:12 | DS ---
Date/Time of Note Date/Time of Note DATE: 07/28/18 TIME: 14:10 Discharge Summary Admission/Discharge Info Admit Date/Time Jul 21, 2018 at 19:50 Discharge Date/Time Discharge Diagnosis 1. Subcutaneous phlegmon involving fat tissue with communication to the skin of open wound over the skin without any evidence of knee joint or muscular or skeletal involvement. 2. Right lower extremity wound. 3. HIV positive status. 4. Psych disorder. Patient Condition: Stable Consults 1. Munir Chun MD, Infectious Diseases. 2. Armen Ramon MD, Orthopedic Surgery. Procedures Right Lower Extremity MRI IMPRESSION: 1. A subcutaneous fat phlegmon, with likely fistulous connection to the skin is seen at the anterior medial aspect of the right knee at about the level of the superior patella. 2. Cannot exclude a developing abscess. 3. Extensive swelling, edema and fluid is seen over the knee, greater over the anterior knee. 4. Ultrasound followup may be of further use in monitoring this lesion. 5. Fluid is seen superficial to the distal vastus medialis, and cannot exclude muscular edema at the lateral and posterior distal vastus medialis. Hx of Present Illness This is a 22-year-old male with comorbidities including HIV positive status and depression who went to an outside facility because of right knee edema which he refers to be started after an apparent spider bite. The patient was transferred to [facility] for insurance reasons. Hospital Course The patient was started on empiric antibiotics including coverage for MRSA. An infectious disease and orthopedic surgery consult was obtained. The patient underwent a right lower extremity MRI that was showing subcutaneous fat phlegmon, with likely fistulous connection to the skin at the anterior aspect of the right knee at about the level of the superior patella with extremity swelling, edema and fluid seen over the knee. Orthopedic surgeon saw and evaluated the patient and concluded that the patient has no joint involvement in the right knee. The patient has a subcutaneous phlegmon involving the fat tissue with communication of skin of open wound over the skin without any evidence of any joint or muscular or skeletal involvement. Orthopedic surgery recommended to continue antimicrobial therapy. Meanwhile, the patient's wound culture showed positive MRSA. The patient also has a right lower extremity wound. Etiology of the patient's wound is unclear. The patient refers to this as a result of a spider bite. The patient has underlying HIV positive status. He was maintained on antiretr oviral medications. The patient's CD4 count was less than 200 indicating AIDS. The patient was being followed by infectious diseases. The patient also has psychiatric disorder. The patient was maintained on mood stabilizers. The patient had a stable hospital course. The patient was also evaluated by physical therapy who later discharged the patient from the service. The patient is apparently homeless. However, he verbalized that he is going to go to his uncle's house upon discharge. Therefore, the patient will be discharged home on oral antibiotics to be followed up with his primary care physician. The patient was instructed on how to do the dressing changes on the 2 wounds on the right lower extremity. Discharge Instructions 1. Resume home medications. 2. Complete the course of antimicrobials (Bactrim DS twice daily times 14 days). 3. Resume activities as tolerated. 4. Do dressing changes of the wound as instructed. 5. Follow-up with HIV clinic. 6. Follow-up with your primary care physician in 2 weeks. If you do not have a primary care physician, please call Dr. Elvis Hernandez's office. 7. Please go to the nearest emergency room if you have persistent fevers, worsening wound drainage, or any other unusual signs/symptoms. The patient verbalized understanding of his discharge instructions. At this time would like to thank all the consultants for seeing the patient and providing clinical recommendations. The patient was seen in collaboration with Dr. Smiley. Home Meds Active Scripts Silver Sulfadiazine* (Silvadene*) 1% - 20 Gm Cream.gm., 1 APPLIC TOP DAILY, #1 UNIT Prov:JOAN MCNEIL ANIMAL DOCTOR 07/28/18 Sulfamethoxazole/Trimethoprim* (Bactrim Ds* Tablet) 1 Each Tablet, 1 TAB PO BID for 14 Days, #28 TAB Prov:JOAN MCNEIL ANIMAL DOCTOR 07/28/18 Acetaminophen-Codeine* (Acetaminophen-Cod #3*) 300-30 Mg Tab, 1 TAB PO Q4H PRN for PAIN, #10 TAB Prov:REBECA BARKER MD 10/30/15 Ibuprofen* (Motrin*) 600 Mg Tab, 600 MG PO Q6, #14 TAB Prov:REBECA BARKER MD 10/30/15 Reported Medications Escitalopram Oxalate* (Lexapro*) 10 Mg Tablet, 10 MG PO DAILY, #30 TAB 07/21/18 Quetiapine Fumarate* (Seroquel*) 100 Mg Tablet, 100 MG PO HS, #30 TAB 3 tabs po at hs 07/21/18 Divalproex Sodium* (Depakote*) 125 Mg Tablet.dr, 250 MG PO QHS, #120 TAB take 3 tabs po 07/21/18 Elviteg/Marce/Emtric/Tenofo Ala (Genvoya Tablet) 1 Each Tablet, 1 EACH PO DAILY, TAB 07/21/18 Multivits,Ca,Minerals/Iron/Fa (THERA-M CAPLET) 1 Each Tablet, 1 EACH PO DAILY, TAB 07/21/18 Discontinued Reported Medications Naproxen* (Naproxen*) 500 Mg Tablet, 500 MG PO BID PRN for PAIN, TAB 07/21/18 Discontinued Scripts Amoxicillin* (Amoxicillin*) 500 Mg Cap, 500 MG PO TID for 10 Days, CAP Prov:REBECA BARKER MD 10/30/15 Follow-up Plan Elvis Hernandez MD Specialty: Internal Medicine Office Address: [address] [place] [id number] Office Primary Care Provider Not On Staff Doctor Time spent on discharge: > 30 minutes Pending Labs RUN DATE: 07/26/18 [facility] PAGE 1 RUN TIME: [id number] [place] [address] [address] Magistrate Vaishali Foley M.D. Co-Traffic Court Magistrate WILL#: [id number] Name: REGGIE MARTINEZ Age/Sex: 22/M Attend Dr: JEWELL VALENZUELA MD Acct: [id number] MR# : [id number] : 1995 Location: [facility] 5566-A Admit: 07/21/18 Specimen: [id number] Status: Complete Adrianna: 07/24/18 Rcvd: 07/24/18 Source: RIGHT KNEE Sp Descrip: Procedure Result Microbiology GRAM STAIN Final EPITHELIAL CELLS 1+ GRAM POS COCCI IN CLUSTER 1+ GRAM POS COCCI IN PAIRS 1+ WOUND CULTURE Final Organism 1 METHICILLIN RESISTANT S.AUREUS QUANTITY 2+ . MULTI DRUG RESISTANT ORGANISM PHONED NICOLE MALLORY, AT 0819, KENJI,PHARM, AND COPY TO I.C., AT 1017, 07/26/18, HN. MRSA M.I.C. RX --------- --- CEFAZOLIN R CIPROFLOXACIN >=8 R CLINDAMYCIN <=0.25 S DOXYCYCLINE S ERYTHROMYCIN <=0.25 S LEVOFLOXACIN 4 R OXACILLIN >=4 R PENICILLIN-G >=0.5 R RIFAMPIN <=0.5 S VANCOMYCIN 1 S TRIMETHOPRIM/SULFAMETHOXAZOLE <=10 S ............................................................................................ Flags: Critical Hi = *H Critical Lo = *L Microbiology Abnormal = * Abnormal Hi = H Abnormal Lo = L Blood Bank Abnormal = * Susceptability Flags: S = Sensitive R = Resistant I = Intermediate END OF REPORT JOAN MCNEIL NP Jul 28, 2018 14:12
== END 2018-07-28 16:01 | disposition home or self-care (01) | DRG 603 ==
LOC: PP2 19:50 → 5EC 07-23 02:07
PROVIDERS: ADMIT Internal Medicine; ATTEND Internal Medicine
DX: L03.115 Cellulitis of right lower limb (principal); Z59.0 Homelessness; R62.7 Adult failure to thrive; Z68.29 Body mass index [BMI] 29.0-29.9, adult; F17.200 Nicotine dependence, unspecified, uncomplicated; F31.9 Bipolar disorder, unspecified; F20.9 Schizophrenia, unspecified
CPT/HCPCS: 71045; 73721; 80048; 80053; 80202; 82565; 83036; 83735; 84100; 84443; 84520; 85025; 85610; 86360; 87070; 87081; 87536; 90389; 97116; 97162; 97530; J1644; J1650; J3370; J7040; J7050